=== PATIENT | female | born 1950 | race Caucasian/White ===

== ENCOUNTER 2020-05-10 07:27 | Outpatient (CLI) | payer MEDICARE, OTHER, SELFPAY ==
--- NOTE | 2020-05-10 07:37 | MM_ITS ---
WS: [id number] Bilateral screening digital mammogram, 05/10/2020 Clinical Data: SCREENING Comparison: 04/18/2019, 04/16/2018, 04/15/2017, 03/21/2016, 03/20/2015, 01/18/2014, 10/11/2012, 11/01/2010. Findings: The breast parenchymal pattern shows no glandular tissue No spiculated masses or clustered calcificat ions are seen. There are no secondary signs of carcinoma. MM/[place] [id number] Impression: 1. Negative bilateral mammogram unchanged. 2. Recommend annual screening mammograms. BIRADS: 1-Negative FOLLOW UP: 1 Year Follow-up The CAD body design checker was used.
== END 2020-05-10 07:28 | disposition home or self-care (01) ==
LOC: RADSHAW 07:34
PROVIDERS: Family Provider Electrodiagnostic Medicine; PCP Electrodiagnostic Medicine; Visit Provider Electrodiagnostic Medicine
DX: Z12.31 Encounter for screening mammogram for malignant neoplasm of breast (principal)
CPT/HCPCS: 77067

== ENCOUNTER 2021-05-01 01:33 | Emergency (ER) | payer MEDICARE, SELFPAY ==
[2021-05-01] VITALS (9 sets, daily range): BP systolic 100–155; BP diastolic 46–98; PULSE 73–91; RESP 16–25; TEMP 36.9–37.4; O2SAT 92–96; BMI 25.7
--- NOTE | 2021-05-01 01:56 | CTR_ITS ---
PROCEDURE INFORMATION: Exam: CT Head Without Contrast Exam date and time: 05/01/2021 1:56 AM Age: 71 years old Clinical indication: Altered mental status/memory loss; Confusion or disorientation; Patient HX: Sudden onset of confusion and general weakness. ; Additional info: AMS TECHNIQUE: Imaging protocol: Computed tomography of the head without contrast. Radiation optimization: All CT scans at this facility use at least one of these dose optimization techniques: automated exposure control; mA and/or kV adjustment per patient size (includes targeted exams where dose is matched to clinical indication); or iterative reconstruction. COMPARISON: MRI Neck/Face/Orbit w/wo [id number] 03/30/2017 9:23 AM RADIATION DOSE METRICS: Total DLP (mGy-cm): 741.65 FINDINGS: Brain: No hemorrhage. No edema, mass effect or midline shift. Periventricular and deep white matter hypodensities compatible with chronic microvascular ischemic changes. Chronic appearing basal ganglia lacunar infarcts. Cerebral ventricles: No ventriculomegaly. Paranasal sinuses: Visualized sinuses are unremarkable. No fluid levels. Mastoid air cells: No mastoid effusion. Bones/joints: No acute fracture. Soft tissues: Unremarkable. CT/CT head wo con* [id number] IMPRESSION: No acute intracranial abnormality. Radiation Dose CTDIVOL = (mGy): DLP = 741.65 (mGy-cm)
--- NOTE | 2021-05-01 01:56 | CTR_ITS ---
PROCEDURE INFORMATION: Exam: CT Angiography Head With Contrast, Arteries Exam date and time: 05/01/2021 1:56 AM Age: 71 years old Clinical indication: Cognitive deficit; Type not specified; Patient HX: Sudden onset of confusion and general weakness. ; Additional info: AMS TECHNIQUE: Imaging protocol: Computed tomography angiography of the head with intravenous contrast. 3D rendering (Not supervised by radiologist): MIP and/or 3D reconstructed images were created by the technologist. Radiation optimization: All CT scans at this facility use at least one of these dose optimization techniques: automated exposure control; mA and/or kV adjustment per patient size (includes targeted exams where dose is matched to clinical indication); or iterative reconstruction. Contrast material: OMNI 350; Contrast volume: 95 ml; Contrast route: INTRAVENOUS (IV); COMPARISON: 1. CT head wo con* [id number] 2021-05-01 02:58 2. MRI Neck/Face/Orbit w/wo [id number] 2017-03-30 09:23 RADIATION DOSE METRICS: Total DLP (mGy-cm): 1570.01 FINDINGS: ANTERIOR CIRCULATION: Right internal carotid artery: Unremarkable. Intracranial segment is patent with no significant stenosis. No aneurysm. Right middle cerebral artery: Unremarkable. No occlusion or significant stenosis. No aneurysm. Right anterior cerebral artery: Unremarkable. No occlusion or significant stenosis. No aneurysm. Left internal carotid artery: Unremarkable. Intracranial segment is patent with no significant stenosis. No aneurysm. Left middle cerebral artery: Unremarkable. No occlusion or significant stenosis. No aneurysm. Left anterior cerebral artery: Unremarkable. No occlusion or significant stenosis. No aneurysm. POSTERIOR CIRCULATION: Right vertebral artery: Unremarkable. No occlusion or significant stenosis. No aneurysm. Left vertebral artery: Unremarkable. No occlusion or significant stenosis. No aneurysm. Basilar artery: Unremarkable. No occlusion or significant stenosis. No aneurysm. Right posterior cerebral artery: Unremarkable. No occlusion or significant stenosis. No aneurysm. Left posterior cerebral artery: Unremarkable. No occlusion or significant stenosis. No aneurysm. Brain: No definite mass, mass effect, or midline shift. Cerebral ventricles: No ventriculomegaly. Bones/joints: Unremarkable. No acute fracture. Soft tissues: Unremarkable. IMPRESSION: No large vessel stenosis or occlusion. PROCEDURE INFORMATION: Exam: CT Angiography Neck With Contrast Exam date and time: 05/01/2021 1:56 AM Age: 71 years old Clinical indication: Cognitive deficit; Type not specified; Patient HX: Sudden onset of confusion and general weakness. ; Additional info: AMS TECHNIQUE: Imaging protocol: Computed tomography angiography of the neck with contrast. 3D rendering (Not supervised by radiologist): MIP and/or 3D reconstructed images were created by the technologist. Radiation optimization: All CT scans at this facility use at least one of these dose optimization techniques: automated exposure control; mA and/or kV adjustment per patient size (includes targeted exams where dose is matched to clinical indication); or iterative reconstruction. Contrast material: OMNI 350; Contrast volume: 95 ml; Contrast route: INTRAVENOUS (IV); COMPARISON: 1. CT head wo con* [id number] 2021-05-01 02:58 2. MRI Neck/Face/Orbit w/wo [id number] 2017-03-30 09:23 RADIATION DOSE METRICS: Total DLP (mGy-cm): 1570.01 FINDINGS: Right common carotid artery: No stenosis. No dissection or occlusion. Right internal carotid artery: No stenosis of the extracranial segment. No dissection or occlusion. Right external carotid artery: No occlusion or stenosis of the origin. Left common carotid artery: No stenosis. No dissection or occlusion. Left internal carotid artery: No stenosis of the extracranial segment. No dissection or occlusion. Left external carotid artery: No occlusion or stenosis of the origin. Right vertebral artery: No stenosis. No dissection or occlusion. Left vertebral artery: No stenosis. No dissection or occlusion. Left subclavian artery: Mild left subclavian artery origin calcification. Soft tissues: Normal. No significant soft tissue swelling. Bones/joints: No acute fracture. Esophagus: Patulous esophagus. CT/CT angio headneck* [id number] IMPRESSION: No stenosis or occlusion. REFERENCES: NASCET CRITERIA. The degree of internal carotid artery stenosis is based on NASCET criteria. Normal is no stenosis. Mild is less than 50% stenosis. Moderate is 50-69% stenosis. Severe is 70% to 99% stenosis. Total occlusion is no detectable patent lumen. Radiation Dose CTDIVOL = (mGy): DLP = 1570.01~1570.01 (mGy-cm)
--- NOTE | 2021-05-01 01:56 | XRR_ITS ---
PROCEDURE INFORMATION: Exam: XR Chest Exam date and time: 05/01/2021 1:56 AM Age: 71 years old Clinical indication: Other: Ams/weakness. ; Patient HX: AMS. Patient confused with generalized weakness. TECHNIQUE: Imaging protocol: XR of the chest. Views: 1 view. COMPARISON: CR Shoulder 2+ views RIGHT* [id number] 05/20/2018 11:56 AM FINDINGS: Lungs: No consolidation. Pleural spaces: Unremarkable. No pleural effusion. No pneumothorax. Heart/Mediastinum: No cardiomegaly. Bones/joints: No acute fracture. XR/XR chest 1V portable [id number] IMPRESSION: No acute findings. Radiation Dose CTDIVOL = (mGy): DLP = (mGy-cm)
--- NOTE | 2021-05-01 02:02 | W.ED.NEUROSD ---
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 He states he has not talked or ever since he got home roughly 1 AM and states that she was still awake was quite confused. She is did not remember where she is at when spoke to her she had asked him questions like if her mother still lived in [place] and he states that her mother's been for 9 years. Patient here is able to tell me the year but is quite confused she cannot member who the president was did not remember her mother's she had an episode of vomiting she denies any headache or chest pain. Associated symptoms: Deny chest pain, headache(s), nausea or vomiting Review of Systems Const: Denies: fever(s), chills, body aches or change in appetite Eyes: Denies: blurry vision or eye discomfort ENMT: Denies: throat pain or dental pain Card: Denies: chest pain Resp: Denies: dyspnea GI: Denies: abdominal pain, nausea, vomiting or diarrhea : Denies: dysuria Musc: Denies: neck pain or back pain Skin/Breast: Denies: rash Neuro: Denies: headache(s) Psych: Denies: depression Joe/Lymph: Denies: easy bruising All/Imm: Denies: urticaria Physical Exam Const: COMMON NORMALS: no acute distress, patient oriented x3 and healthy appearing ORIENTATION/CONSCIOUSNESS: Yes confused HENMT: COMMON NORMALS: normocephalic and atraumatic HEAD & SCALP: normocephalic and atraumatic Eye: COMMON NORMALS: Equal, round and reactive pupils present and EOMs intact bilaterally PUPIL: Yes Equal, round and reactive pupils present Neck/C-Spine: COMMON NORMALS: full ROM and supple Chest: COMMONS NORMALS: normal inspection of the chest and normal palpation of entire chest wall Resp: COMMON NORMALS: normal respiratory effort, No retractions, No use of accessory muscles and clear to auscultation bilaterally AUSCULTATION: clear to auscultation bilaterally Cardio: COMMON NORMALS: regular rate, regular rhythm and No murmurs present (Cardio) RATE: regular rate RHYTHM: regular rhythm GI: COMMON NORMALS: Normal to inspection, nondistended, normoactive bowel sounds present, Soft to palpation, non-tender and no masses PALPATION: Yes Soft to palpation Extremity: COMMON NORMALS: normal to inspection and full ROM Neuro: COMMON NORMALS: patient oriented x3, moves all extremities and no focal motor deficits Psych: COMMON NORMALS: mental status grossly normal, Normal thought process present and cooperative THOUGHT PROCESS: Normal thought process present Skin: COMMON NORMALS: no rashes or lesions noted and no wounds GENERAL SKIN EXAM: no rashes or lesions noted Course Vital Signs: Vital signs: Vital Signs Temperature 98.5 F 05/01/21 01:42 Pulse Rate 91 05/01/21 01:42 Respiratory Rate 16 05/01/21 01:42 Blood Pressure 155/98 05/01/21 01:42 Pulse Oximetry 96 05/01/21 01:42 MDM - Neuro Symptoms/Deficit MDM Narrative: Medical decision making narrative: Patient presents here with acute confusion last time spoke to her was at 8 PM patient is quite confused here patient has no signs of any infection CT and CTA here are normal. Spoke to the hospitalist who is seen patient will admit at this time. Lab Data: Labs: Lab Results 05/01/21 05/01/21 05/01/21 02:00 02:00 02:00 WBC 10.4 10^3/uL H 10 ^3/uL (4.0-10.0) RBC 4.16 10^6/uL 10^6 /uL (4.1-5.3) Hgb 14.1 g/dL g/dL (11.5-15.3) Hct 41.3 % % (37.0-47.0) MCV 99.3 fl H fl (81-99) MCH 33.9 pg pg (28.0-34.0) MCHC 34.1 g/dL g/dL (30.0-36.0) RDW 12.3 % % (12.1-15.1) Plt Count 286 10^3/cmm 10^3 /cmm (130-400) MPV 10.8 fL H fL (7.4-10.4) Neut % (Auto) 71.9 % % Lymph % (Auto) 18.6 % % Williams % (Auto) 7.6 % % Eos % (Auto) 1.1 % % Baso % (Auto) 0.6 % % Neut # (Auto) 7.49 10^3/uL 10^3 /uL (1.8-7.7) Lymph # (Auto) 1.9 10^3/uL 10^3/ uL (0.8-4.8) Williams # (Auto) 0.8 10^3/uL 10^3/ uL (0.2-0.9) Eos # (Auto) 0.1 10^3/uL 10^3/ uL (0.0-0.8) Baso # (Auto) 0.1 10^3/uL 10^3/ uL (0.0-0.1) Nucleated RBC % (a uto) 0 % % Nucleated RBCs # 0.0 /100WBC /100W BC PT 12.00 SECONDS L S ECONDS (12.1-14.9) INR 0.86 (0.8-1.2) Sodium 140 mmol/L mmol/L (136-145) Potassium 3.9 mmol/L mmol/L (3.5-5.1) Chloride 104 mmol/L mmol/L (98-107) Carbon Dioxide 25 mmol/L mmol/L (22-29) Anion Gap 14.9 (5-19) BUN 19 mg/dL mg/dL (8-23) Creatinine 0.7 mg/dL mg/dL (0.5-0.9) GFR Calculation 83.0 mL/min L mL/ min (90-130) Glucose 124 mg/dL H mg/dL (65-115) Calculated Osmolal ity 294 mOsm/kg mOsm/ kg (285-295) Calcium 8.7 mg/dL mg/dL (8.5-10.5) Total Bilirubin 0.4 mg/dL mg/dL (0.15-1.2) AST 40 U/L H U/L (0-32) ALT 63 U/L H U/L (0-33) Alkaline Phosphata se 86 IU/L IU/L (35-105) Total Protein 7.1 g/dL g/dL (6.6-8.7) Albumin 4.3 g/dL g/dL (3.5-5.2) Globulin 2.8 g/dL g/dL (1.3-4.6) Urine Color Urine Appearance Urine pH Ur Specific Gravit y Urine Protein Urine Glucose (UA) Urine Ketones Urine Blood Urine Nitrate Urine Bilirubin Urine Urobilinogen Ur Leukocyte Lucy ase 05/01/21 02:00 WBC RBC Hgb Hct MCV MCH MCHC RDW Plt Count MPV Neut % (Auto) Lymph % (Auto) Williams % (Auto) Eos % (Auto) Baso % (Auto) Neut # (Auto) Lymph # (Auto) Williams # (Auto) Eos # (Auto) Baso # (Auto) Nucleated RBC % (a uto) Nucleated RBCs # PT INR Sodium Potassium Chloride Carbon Dioxide Anion Gap BUN Creatinine GFR Calculation Glucose Calculated Osmolal ity Calcium Total Bilirubin AST ALT Alkaline Phosphata se Total Protein Albumin Globulin Urine Color Yellow (Yellow) Urine Appearance Clear (CLEAR) Urine pH 6 (5-7) Ur Specific Gravit y 1.020 (1.005-1.030) Urine Protein Neg (Negative) Urine Glucose (UA) Norm (Normal) Urine Ketones Negative (Negative) Urine Blood Neg (Negative) Urine Nitrate Negative (Negative) Urine Bilirubin Neg (Negative) Urine Urobilinogen Neg mg/dL mg/dL (Negative) Ur Leukocyte Lucy ase Negative (Negative) Imaging Data^: CT Head: Attestation: I personally reviewed and interpreted this imaging study as follows: Radiologist's impression: [address] [address] [address] Scan Report Signed Patient: Brenda Thomas Unit #: [id number] : 1950 Age/Sex: 71 / F ADM Date: 05/01/21 Loc: ER Room/Bed: Attending Dr: Ordering Provider/Ordering MD: Ronn Magallon MD Date of Service: 05/01/21 Procedure(s): CT head wo con* [id number] Accession Number(s): [id number] Report Number: [id number] PROCEDURE INFORMATION: Exam: CT Head Without Contrast Exam date and time: 05/01/2021 1:56 AM Age: 71 years old Clinical indication: Altered mental status/memory loss; Confusion or disorientation; Patient HX: Sudden onset of confusion and general weakness. ; Additional info: AMS TECHNIQUE: Imaging protocol: Computed tomography of the head without contrast. Radiation optimization: All CT scans at this facility use at least one of these dose optimization techniques: automated exposure control; mA and/or kV adjustment per patient size (includes targeted exams where dose is matched to clinical indication); or iterative reconstruction. COMPARISON: MRI Neck/Face/Orbit w/wo [id number] 03/30/2017 9:23 AM RADIATION DOSE METRICS: Total DLP (mGy-cm): 741.65 FINDINGS: Brain: No hemorrhage. No edema, mass effect or midline shift. Periventricular and deep white matter hypodensities compatible with chronic microvascular ischemic changes. Chronic appearing basal ganglia lacunar infarcts. Cerebral ventricles: No ventriculomegaly. Paranasal sinuses: Visualized sinuses are unremarkable. No fluid levels. Mastoid air cells: No mastoid effusion. Bones/joints: No acute fracture. Soft tissues: Unremarkable. CT/CT head wo con* [id number] IMPRESSION: No acute intracranial abnormality. Radiation Dose CTDIVOL = (mGy): DLP = 741.65 (mGy-cm) Dictated By: Rafaela Atwood MD Signed By: Rafaela Atwood MD Signed Date/Time: 05/01/21411 DD/ 5 CXR: Attestation: I personally reviewed and interpreted this imaging study as follows: Radiologist's impression: [address] [address] XRay Report Signed Patient: Brenda Thomas Unit #: [id number] : 1950 Age/Sex: 71 / F ADM Date: 05/01/21 Loc: ER Room/Bed: Attending Dr: Ordering Provider/Ordering MD: Ronn Magallon MD Date of Service: 05/01/21 Procedure(s): XR chest 1V portable [id number] Accession Number(s): [id number] Report Number: [id number] PROCEDURE INFORMATION: Exam: XR Chest Exam date and time: 05/01/2021 1:56 AM Age: 71 years old Clinical indication: Other: Ams/weakness. ; Patient HX: AMS. Patient confused with generalized weakness. TECHNIQUE: Imaging protocol: XR of the chest. Views: 1 view. COMPARISON: CR Shoulder 2+ views RIGHT* [id number] 05/20/2018 11:56 AM FINDINGS: Lungs: No consolidation. Pleural spaces: Unremarkable. No pleural effusion. No pneumothorax. Heart/Mediastinum: No cardiomegaly. Bones/joints: No acute fracture. XR/XR chest 1V portable [id number] IMPRESSION: No acute findings. Radiation Dose CTDIVOL = (mGy): DLP = (mGy-cm) Dictated By: Rafaela Atwood MD Signed By: Rafaela Atwood MD Signed Date/Time: 05/01/21411 DD/ [address]: Attestation: I personally reviewed and interpreted this imaging study as follows: Radiologist's impression: [address] [address] [address] Scan Report Signed Patient: Brenda Thomas Unit #: [id number] : 1950 Age/Sex: 71 / F ADM Date: 05/01/21 Loc: ER Room/Bed: Attending Dr: Ordering Provider/Ordering MD: Ronn Magallon MD Date of Service: 05/01/21 Procedure(s): CT angio headneck* [id number] Accession Number(s): [id number] Report Number: [id number] PROCEDURE INFORMATION: Exam: CT Angiography Head With Contrast, Arteries Exam date and time: 05/01/2021 1:56 AM Age: 71 years old Clinical indication: Cognitive deficit; Type not specified; Patient HX: Sudden onset of confusion and general weakness. ; Additional info: AMS TECHNIQUE: Imaging protocol: Computed tomography angiography of the head with intravenous contrast. 3D rendering (Not supervised by radiologist): MIP and/or 3D reconstructed images were created by the technologist. Radiation optimization: All CT scans at this facility use at least one of these dose optimization techniques: automated exposure control; mA and/or kV adjustment per patient size (includes targeted exams where dose is matched to clinical indication); or iterative reconstruction. Contrast material: OMNI 350; Contrast volume: 95 ml; Contrast route: INTRAVENOUS (IV); COMPARISON: 1. CT head wo con* [id number] 2021-05-01 02:58 2. MRI Neck/Face/Orbit w/wo [id number] 2017-03-30 09:23 RADIATION DOSE METRICS: Total DLP (mGy-cm): 1570.01 FINDINGS: ANTERIOR CIRCULATION: Right internal carotid artery: Unremarkable. Intracranial segment is patent with no significant stenosis. No aneurysm. Right middle cerebral artery: Unremarkable. No occlusion or significant stenosis. No aneurysm. Right anterior cerebral artery: Unremarkable. No occlusion or significant stenosis. No aneurysm. Left internal carotid artery: Unremarkable. Intracranial segment is patent with no significant stenosis. No aneurysm. Left middle cerebral artery: Unremarkable. No occlusion or significant stenosis. No aneurysm. Left anterior cerebral artery: Unremarkable. No occlusion or significant stenosis. No aneurysm. POSTERIOR CIRCULATION: Right vertebral artery: Unremarkable. No occlusion or significant stenosis. No aneurysm. Left vertebral artery: Unremarkable. No occlusion or significant stenosis. No aneurysm. Basilar artery: Unremarkable. No occlusion or significant stenosis. No aneurysm. Right posterior cerebral artery: Unremarkable. No occlusion or significant stenosis. No aneurysm. Left posterior cerebral artery: Unremarkable. No occlusion or significant stenosis. No aneurysm. Brain: No definite mass, mass effect, or midline shift. Cerebral ventricles: No ventriculomegaly. Bones/joints: Unremarkable. No acute fracture. Soft tissues: Unremarkable. IMPRESSION: No large vessel stenosis or occlusion. PROCEDURE INFORMATION: Exam: CT Angiography Neck With Contrast Exam date and time: 05/01/2021 1:56 AM Age: 71 years old Clinical indication: Cognitive deficit; Type not specified; Patient HX: Sudden onset of confusion and general weakness. ; Additional info: AMS TECHNIQUE: Imaging protocol: Computed tomography angiography of the neck with contrast. 3D rendering (Not supervised by radiologist): MIP and/or 3D reconstructed images were created by the technologist. Radiation optimization: All CT scans at this facility use at least one of these dose optimization techniques: automated exposure control; mA and/or kV adjustment per patient size (includes targeted exams where dose is matched to clinical indication); or iterative reconstruction. Contrast material: OMNI 350; Contrast volume: 95 ml; Contrast route: INTRAVENOUS (IV); COMPARISON: 1. CT head wo con* [id number] 2021-05-01 02:58 2. MRI Neck/Face/Orbit w/wo [id number] 2017-03-30 09:23 RADIATION DOSE METRICS: Total DLP (mGy-cm): 1570.01 FINDINGS: Right common carotid artery: No stenosis. No dissection or occlusion. Right internal carotid artery: No stenosis of the extracranial segment. No dissection or occlusion. Right external carotid artery: No occlusion or stenosis of the origin. Left common carotid artery: No stenosis. No dissection or occlusion. Left internal carotid artery: No stenosis of the extracranial segment. No dissection or occlusion. Left external carotid artery: No occlusion or stenosis of the origin. Right vertebral artery: No stenosis. No dissection or occlusion. Left vertebral artery: No stenosis. No dissection or occlusion. Left subclavian artery: Mild left subclavian artery origin calcification. Soft tissues: Normal. No significant soft tissue swelling. Bones/joints: No acute fracture. Esophagus: Patulous esophagus. CT/CT angio headneck* [id number] IMPRESSION: No stenosis or occlusion. REFERENCES: NASCET CRITERIA. The degree of internal carotid artery stenosis is based on NASCET criteria. Normal is no stenosis. Mild is less than 50% stenosis. Moderate is 50-69% stenosis. Severe is 70% to 99% stenosis. Total occlusion is no detectable patent lumen. 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
[2021-05-01 02:27] LABS: Basophils # 0.1 10^3/uL (0.0-0.1); Basophils % 0.6 %; Eosinophils # 0.1 10^3/uL (0.0-0.8); Eosinophils % 1.1 %; Hematocrit 41.3 % (37.0-47.0); Hemoglobin 14.1 g/dL (11.5-15.3); Lymphocytes # 1.9 10^3/uL (0.8-4.8); Lymphocytes % 18.6 %; Mean Corpuscular HGB Conc 34.1 g/dL (30.0-36.0); Mean Corpuscular Hemoglobin 33.9 pg (28.0-34.0); Mean Corpuscular Volume 99.3 fl (81-99); Mean Platelet Volume 10.8 fL (7.4-10.4); Monocytes # 0.8 10^3/uL (0.2-0.9); Monocytes % 7.6 %; Neutrophils # 7.49 10^3/uL (1.8-7.7); Neutrophils % 71.9 %; Nucleated Red Blood Cells % 0 %; Platelet Count 286 10^3/cmm (130-400); Red Blood Count 4.16 10^6/uL (4.1-5.3); Red Cell Distribution Width 12.3 % (12.1-15.1); White Blood Count 10.4 10^3/uL (4.0-10.0)
[2021-05-01 02:31] LABS: Add Urine Microscopic? NO; Charge for UA Resulting for Rev
[2021-05-01 02:41] LABS: INR 0.86 (0.8-1.2)
[2021-05-01 02:42] LABS: Bilirubin Urine Neg (Negative); Blood Urine Neg (Negative); Glucose Urine UA Norm (Normal); Ketones Urine Negative (Negative); Leukocyte Esterase Urine Negative (Negative); Nitrate Urine Negative (Negative); Protein Urine Neg (Negative); Urine Appearance Clear (CLEAR); Urine Color Yellow (Yellow); Urobilinogen Urine Neg (Negative); pH Urine 6 (5-7)
[2021-05-01 02:44] LABS: Alanine Aminotransferase 63 U/L (0-33); Albumin Level 4.3 g/dL (3.5-5.2); Alkaline Phosphatase 86 IU/L (35-105); Anion Gap 14.9 (5-19); Aspartate Amino Transferase 40 U/L (0-32); Blood Urea Nitrogen 19 mg/dL (8-23); Calcium 8.7 mg/dL (8.5-10.5); Carbon Dioxide 25 mmol/L (22-29); Chloride 104 mmol/L (98-107); Creatinine Clr Calc Pharmacy 62.9019; Globulin 2.8 g/dL (1.3-4.6); Glucose 124 mg/dL (65-115); Osmolality Calculated 294 mOsm/kg (285-295); Potassium 3.9 mmol/L (3.5-5.1); Sodium 140 mmol/L (136-145); Total Bilirubin 0.4 mg/dL (0.15-1.2); Total Protein 7.1 g/dL (6.6-8.7)
[2021-05-01] MEDS: iohexol 350 mg/mL 100 mL Btl IV (02:59)
--- NOTE | 2021-05-01 03:56 | PM.HP ---
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 Patient stated he had spoken with her earlier in the day and she appeared to have been at her baseline. Did not have any complaints. Around 8:00 p.m. is when he returned home and noted the change. During that time patient was complaining of nausea after which she had multiple episodes of non-bloody emesis. No reported fever or chills. No chest pain or shortness of breath. Upon arrival to emergency room her laboratory workup showed a WBC of 10.4, hemoglobin of 14.1, hematocrit 41.3 and a platelet count of 286. Sodium 140, potassium 3.9, chloride 104, bicarb 25, BUN 18 and creatinine of 0.7. Glucose 124. AST of 40, ALT of 63 and alkaline phosphatase of 86. UA negative. Vital signs showed a BP of 155/98, HR of 91, RR 16 with 96% oxygen on RA. Admitted for observation Review of Systems General: Reports: ROS unobtainable due to mental status Medications/Allergies Allergies Allergy/AdvReac Type Severity Reaction Status Date / Time No Known Allergies Allergy Verified 05/01/21 01:42 PFSH Acute PFSH: Medical History (Updated 05/01/21 @ 06:16 by Cande Giraldo MD) Hypertension No pertinent family history Surgical History (Updated 05/01/21 @ 06:16 by Cande Giraldo MD) No pertinent past surgical history Social History (Updated 05/01/21 @ 06:16 by Cande Giraldo MD) Smoking and tobacco status: unknown if ever smoked Alcohol intake: unknown Substance/Drug Use: unknown Vitals/I&O/Wt Last Vital Signs Temp 98.5 F 05/01/21 01:42 Pulse 91 05/01/21 01:42 Resp 16 05/01/21 01:42 BP 155/98 05/01/21 01:42 Pulse Ox 96 05/01/21 01:42 Weight last 48 hrs Weight 68.039 kg Physical Exam Narrative: EXAM NARRATIVE: General: Alert, pleasantly confused HEENT; Grossly normal CVS; RRR Chest ; CTABL Abd; Soft nt,nd Ext noedema Neuro: CN 2-12 intact, no motor or sensory deficits. Data : 05/01/21 02:00 05/01/21 02:00 A&P Assessment and plan (1) Altered mental status: Status: Acute Qualifiers: Altered mental status type: unspecified Qualified Code(s): R41.82 - Altered mental status, unspecified (2) Hypertension: Status: Acute Additional A&P Information Altered Mental status - Etiology unclear - No new meds - Afebrile - No clear sign of infection - CT head/CTA, - negative - Check TSH, procal - NS at 75cc/hr - NIH 0 on arrival - Consider neurology consult - Check UDS DVT ppx - Heparin 5000 units q8hr Attestations Medical Necessity Statement*: anticipate less than two midnight in hospital Time Spent in Patient Care: Greater than 35 minutes (>than 50% of time spent in counselling and/or direct pt care on unit). 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
--- NOTE | 2021-05-01 04:16 | ECG_ITS ---
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 Measurements Intervals [place] Rate: 74 P: -18 TN: 146 QRS: -23 QRSD: 97 T: -29 QT: 392 QTc: 437 Interpretive Statements SINUS RHYTHM INDETERMINATE AXIS INFERIOR MYOCARDIAL INFARCTION , OF INDETERMINATE AGE [40+ ms Q WAVE AND/OR ST/T ABNORMALITY IN II/aVF] No previous ECG available for comparison Electronically Signed On 05-01-2021 17:36:38 HOME HEALTH TRAVEL PT by Norberto Ford M.D. [email or web address] mary[facility] [place] [facility].[employer]sm[employer]/[email or web address]/OM/[id number]/[id number]
[2021-05-01 06:44] LABS: Procalcitonin 0.04 ng/mL (0-0.5)
[2021-05-01] MEDS: acetaminophen 325 mg Tablet 650 MG PO (07:32)
[2021-05-01] MEDS: sodium chloride 0.9% 1,000 ML 75 ML IV (08:23)
[2021-05-01] MEDS: heparin 5,000 unit/mL INJ 1 mL 5000 UNIT SUBCUT (08:24)
[2021-05-01] MEDS: pantoprazole DR 40 mg Tablet PO (09:25)
[2021-05-01] MEDS: ibuprofen 200 mg Tablet PO (11:31)
[2021-05-01 11:32] LABS: Amphetamines Screen Urine Negative (Negative); Barbiturates Screen Urine Negative (Negative); Benzodiazepines Screen Urine Negative (Negative); Cocaine Screen Urine Negative (Negative); Opiate Screen Urine Negative (Negative); PCP Screen Urine Negative (Negative); THC Screen Urine Negative (Negative)
--- NOTE | 2021-05-01 11:34 | PM.PN ---
Vitals/I&O/Wt Last Vital Signs Temp 98.4 F 05/01/21 10:33 Pulse 73 05/01/21 11:29 Resp 19 H 05/01/21 11:29 BP 104/49 05/01/21 11:29 Pulse Ox 94 05/01/21 11:29 Weight last 48 hrs Weight 68.039 kg Physical Exam Const: COMMON NORMALS: patient oriented x3 HENMT: COMMON NORMALS: normocephalic and atraumatic HEAD & SCALP: normocephalic and atraumatic Resp: COMMON NORMALS: clear to auscultation bilaterally AUSCULTATION: clear to auscultation bilaterally Cardio: COMMON NORMALS: regular rate, regular rhythm, S1 normal heart sound present, S2 normal heart sound present, No gallops present (Cardio), No murmurs present (Cardio), No rub (Cardio) and Peripheral pulses 2+ throughout RATE: regular rate RHYTHM: regular rhythm HEART SOUNDS: S1 normal heart sound present and S2 normal heart sound present PERIPHERAL PULSES: Peripheral pulses 2+ throughout GI: COMMON NORMALS: Normal to inspection, nondistended, normoactive bowel sounds present, Soft to palpation, non-tender, No hepatosplenomegaly present and no masses AUSCULTATION: Yes normoactive bowel sounds PALPATION: Yes Soft to palpation and Yes No hepatosplenomegaly present RECTAL EXAM: deferred Extremity: COMMON NORMALS: no clubbing, cyanosis or edema and no pedal edema Neuro: COMMON NORMALS: patient oriented x3 Data : 05/01/21 02:00 05/01/21 02:00 A&P Assessment and plan (1) Altered mental status: Status: Acute Qualifiers: Altered mental status type: unspecified Qualified Code(s): R41.82 - Altered mental status, unspecified (2) Hypertension: Status: Acute (3) Nausea & vomiting: Status: Acute (4) Headache: Status: Acute Additional A&P Information Altered Mental status - Etiology unclear - No new meds - Afebrile - No clear sign of infection - CT head/CTA, - negative - Check TSH, procal - NS at 75cc/hr - NIH 0 on arrival - Consider neurology consult - Check UDS DVT ppx - Heparin 5000 units q8hr Coding Level of Care Code 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
--- NOTE | 2021-05-01 12:32 | PM.DCS ---
Discharge Providers Date of Admission: 05/01/21 05:36 Date of Discharge: May 01, 2021 Attending Provider at Admission: Cande Giraldo Attending Provider at Discharge: Tristian Kebede MD Primary Care Provider: Troy Berrios DO Diagnoses at Discharge Discharge Diagnosis (1) Altered mental status: Status: Resolved Qualifiers: Altered mental status type: unspecified Qualified Code(s): R41.82 - Altered mental status, unspecified (2) Hypertension: Status: Acute (3) Nausea & vomiting: Status: Resolved (4) Headache: Status: Resolved Reason for Visit Reason for Visit: Disorientated and Vomiting Hospital Course Hospital Course 71-year-old female with past medical history of depression, dyslipidemia, was brought in with chief complaint of acute onset of confusion as well as nausea vomiting ( multiple episodes of non-bloody emesis),No reported fever or chills. No chest pain or shortness of breath. Upon arrival to emergency room her laboratory workup showed a WBC of 10.4, hemoglobin of 14.1, hematocrit 41.3 and a platelet count of 286. Sodium 140, potassium 3.9, chloride 104, bicarb 25, BUN 18 and creatinine of 0.7. Glucose 124. AST of 40, ALT of 63 and alkaline phosphatase of 86. UA negative. Vital signs showed a BP of 155/98, HR of 91, RR 16 with 96% oxygen on RA. She was admitted for the management of altered mental status nausea, vomiting. Pertinent imaging studies: CT head without contrast : No acute intracranial pathology, CTA head and neck, was negative, TSH was normal , procalcitonin was normal, urinalysis was clear, urine tox was negative. Chest x-ray was clean. When I saw the patient in the morning she was not complaining of any nausea vomiting, she was alert awake* 3. She was complaining of mild headache and wanted ibuprofen for that which works well for her, denies any weakness, she was tolerating diet well. Likely cause of acute encephalopathy is unclear, possibility, viral GI infection cannot be completely ruled. Patient was hemodynamically stable afebrile, saturating well on room air, it was decided that she can safely be discharged to home to follow-up with her primary care physician as an outpatient. Patient responded well to above medical management and was discharged in stable condition. Physical Exam Const: COMMON NORMALS: patient oriented x3 HENMT: COMMON NORMALS: normocephalic and atraumatic HEAD & SCALP: normocephalic and atraumatic Resp: COMMON NORMALS: clear to auscultation bilaterally AUSCULTATION: clear to auscultation bilaterally Cardio: COMMON NORMALS: regular rate, regular rhythm, S1 normal heart sound present, S2 normal heart sound present, No gallops present (Cardio), No murmurs present (Cardio), No rub (Cardio) and Peripheral pulses 2+ throughout RATE: regular rate RHYTHM: regular rhythm HEART SOUNDS: S1 normal heart sound present and S2 normal heart sound present PERIPHERAL PULSES: Peripheral pulses 2+ throughout GI: COMMON NORMALS: Normal to inspection, nondistended, normoactive bowel sounds present, Soft to palpation, non-tender, No hepatosplenomegaly present and no masses AUSCULTATION: Yes normoactive bowel sounds PALPATION: Yes Soft to palpation and Yes No hepatosplenomegaly present RECTAL EXAM: deferred Extremity: COMMON NORMALS: no clubbing, cyanosis or edema and no pedal edema Neuro: COMMON NORMALS: patient oriented x3 Discharge Data Data Completed and Pending: Completed Studies During Hospitalization Category Date Time Status CT angio headneck * [id number] Urge nt Cat Scan 05/01/21 01:[address] head wo con* 7 0450 Urgent Cat Scan 05/01/21 01:56 Completed XR chest 1V [email or web address] ble [id number] Urgent Exams 05/01/21 01:56 Completed Pending at discharge Category Date Time Status Basic Metabolic P mine AM LABS Lab 05/02/21 04:00 Ordered Basic Metabolic P mine AM LABS Lab 05/03/21 04:00 Ordered Complete Blood Co unt w/Auto AM LABS Lab 05/02/21 04:00 Ordered Complete Blood Co unt w/Auto AM LABS Lab 05/03/21 04:00 Ordered Urine Culture Rou indio Lab 05/01/21 02:00 Received Labs from last 24 hours 05/01/21 05/01/21 05/01/21 02:00 02:00 02:00 WBC RBC Hgb Hct MCV MCH MCHC RDW Plt Count MPV Neut % (Auto) Lymph % (Auto) [place] % (Auto) Eos % (Auto) Baso % (Auto) Neut # (Auto) Lymph # (Auto) [place] # (Auto) Eos # (Auto) Baso # (Auto) Nucleated RBC % (a uto) Nucleated RBCs # PT INR Sodium Potassium Chloride Carbon Dioxide Anion Gap BUN Creatinine GFR Calculation Glucose Calculated Osmolal ity Calcium Total Bilirubin AST ALT Alkaline Phosphata se Total Protein Albumin Globulin Procalcitonin 0.04 TSH 3.50 Urine Color Urine Appearance Urine pH Ur Specific Gravit y Urine Protein Urine Glucose (UA) Urine Ketones Urine Blood Urine Nitrate Urine Bilirubin Urine Urobilinogen Ur Leukocyte Lucy ase Urine Opiates Scre en Negative Ur Barbiturates Sc reen Negative Ur Phencyclidine S crn Negative Ur Amphetamines Sc reen Negative U Benzodiazepines Scrn Negative Urine Cocaine Scre en Negative U Marijuana (THC) Screen Negative 05/01/21 05/01/21 05/01/21 02:00 02:00 02:00 WBC RBC Hgb Hct MCV MCH MCHC RDW Plt Count MPV Neut % (Auto) Lymph % (Auto) [place] % (Auto) Eos % (Auto) Baso % (Auto) Neut # (Auto) Lymph # (Auto) [place] # (Auto) Eos # (Auto) Baso # (Auto) Nucleated RBC % (a uto) Nucleated RBCs # PT 12.00 L INR 0.86 Sodium 140 Potassium 3.9 Chloride 104 Carbon Dioxide 25 Anion Gap 14.9 BUN 19 Creatinine 0.7 GFR Calculation 83.0 L Glucose 124 H Calculated Osmolal ity 294 Calcium 8.7 Total Bilirubin 0.4 AST 40 H ALT 63 H Alkaline Phosphata se 86 Total Protein 7.1 Albumin 4.3 Globulin 2.8 Procalcitonin TSH Urine Color Yellow Urine Appearance Clear Urine pH 6 Ur Specific Gravit y 1.020 Urine Protein Neg Urine Glucose (UA) Norm Urine Ketones Negative Urine Blood Neg Urine Nitrate Negative Urine Bilirubin Neg Urine Urobilinogen Neg Ur Leukocyte Lucy ase Negative Urine Opiates Scre en Ur Barbiturates Sc reen Ur Phencyclidine S crn Ur Amphetamines Sc reen U Benzodiazepines Scrn Urine Cocaine Scre en U Marijuana (THC) Screen 05/01/21 02:00 WBC 10.4 H RBC 4.16 Hgb 14.1 Hct 41.3 MCV 99.3 H MCH 33.9 MCHC 34.1 RDW 12.3 Plt Count 286 MPV 10.8 H Neut % (Auto) 71.9 Lymph % (Auto) 18.6 [place] % (Auto) 7.6 Eos % (Auto) 1.1 Baso % (Auto) 0.6 Neut # (Auto) 7.49 Lymph # (Auto) 1.9 [place] # (Auto) 0.8 Eos # (Auto) 0.1 Baso # (Auto) 0.1 Nucleated RBC % (a uto) 0 Nucleated RBCs # 0.0 PT INR Sodium Potassium Chloride Carbon Dioxide Anion Gap BUN Creatinine GFR Calculation Glucose Calculated Osmolal ity Calcium Total Bilirubin AST ALT Alkaline Phosphata se Total Protein Albumin Globulin Procalcitonin TSH Urine Color Urine Appearance Urine pH Ur Specific Gravit y Urine Protein Urine Glucose (UA) Urine Ketones Urine Blood Urine Nitrate Urine Bilirubin Urine Urobilinogen Ur Leukocyte Lucy ase Urine Opiates Scre en Ur Barbiturates Sc reen Ur Phencyclidine S crn Ur Amphetamines Sc reen U Benzodiazepines Scrn Urine Cocaine Scre en U Marijuana (THC) Screen Vitals: Last Vital Signs Temp 98.4 F 05/01/21 10:33 Pulse 79 05/01/21 12:08 Resp 25 H 05/01/21 12:08 BP 128/69 05/01/21 12:08 Pulse Ox 92 05/01/21 12:08 Discharge Plan Discharge Patient Disposition: Home Condition: Stable Prescriptions: New ibuprofen 200 mg Tablet 200 mg PO Q6H PRN (Reason: Moderate Pain) 3 Days Qty: 10 RF: 0 Continued atorvastatin 80 mg tablet 80 mg PO DAILY RF: 0 omeprazole 40 mg capsule,delayed release(DR/EC) 40 mg PO DAILY RF: 0 sertraline 25 mg tablet 25 mg PO DAILY RF: 0 oxybutynin chloride 5 mg tablet 5 mg PO DAILY RF: 0 Discharge Orders: Discharge Order (Routine); Ordered 05/01/21 Ordered By: Tristian Kebede Referrals: Troy Berrios DO [Primary Care Provider] - 2 weeks Discharge Diet: Regular Discharge Activity: Resume usual activity Patient Instructions: Opioid Safety Discharge Attestations Time Spent in Discharge Care*: less than 30 min Specific Discharge Activities: educating patient, educating and/or supporting family/caregiver, discussing with case management assistant/social workers/dc planners, documenting/other paperwork and evaluating patient/reviewing data Status at Discharge: Cognitive status at discharge: cognitively intact, Behavioral status at discharge: cooperative, Functional status at discharge: independent ambulation Overall status at discharge: patient is back to baseline Quality Metrics Clinical Quality Measures During this hospital stay, did patient experience: None Coding Level of Care Code Acute Chg FW DC note Exam Detailed Diagnoses Altered mental status R41.82 Altered mental status type: unspecified Hypertension I10 Nausea & vomiting R11.2 Headache R51.9
--- NOTE | 2021-05-01 13:36 | PC.NURSE ---
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 I told the patient it would be just a minute and they stated i have ibuprofen at home, i dont need it .
--- NOTE | 2021-05-01 15:31 | PC.OT ---
OT EVALUATION NOT COMPLETED AT THIS TIME DUE TO PATIENT BEING DISCHARGED FROM ER.
== END 2021-05-01 13:40 | disposition admitted as inpatient to this hospital (09) ==
LOC: ER 04:46 → ER IP 05:40
PROVIDERS: Emergency Provider Emergency Medicine; PCP Electrodiagnostic Medicine; Visit Provider Hospitalist
DX: R41.82 Altered mental status, unspecified (principal); R11.10 Vomiting, unspecified; I10 Essential (primary) hypertension
CPT/HCPCS: 70450; 70496; 70498; 71045; 80053; 80306; 81003; 84145; 84443; 85025; 85610; 87077; 87086; 87186; 93005; 96372; J1644; J7030; Q9967

== ENCOUNTER 2021-07-16 07:09 | Outpatient (CLI) | payer MEDICARE, SELFPAY ==
--- NOTE | 2021-07-16 07:14 | USCV_ITS ---
Brenda Thomas Age: 71 Gender: F : 1950 Exam Date: 07/16/2021 07:52 Ordering Phys: Troy Berrios DO Technologist: AMA [place]am [place] [facility] [place]ication: Syncope, Headache, Altered mental status BP: 155 / 97 HR: 63 Rhythm: Sinus Technical Quality: Adequate MEASUREMENTS (Male / Female) Normal Values 2D ECHO LV Diastolic Diameter PLAX 5.1 cm 4.2 - 5.9 / 3.9 - 5.3 cm LV Systolic Diameter PLAX 3.1 cm IVS Diastolic Thickness 1.1 cm 0.6 - 1.0 / 0.6 - 0.9 cm IVS Systolic Thickness 1.1 cm LVPW Diastolic Thickness 1.1 cm 0.6 - 1.0 / 0.6 - 0.9 cm LVPW Systolic Thickness 1.3 cm LVOT Diameter 2.0 cm LV Ejection Fraction 2D Teich 66.3 % LV Ejection Fraction MOD 2C 59.5 % LV Ejection Fraction 2C AL 60.4 % LA Diameter 3.5 cm Aorta at Sinotubular Diameter 2.3 cm M-MODE Aortic Annulus Diameter 2.6 cm LA Ao Ratio MM 1.5 MV E Point Septal Separation 0.3 cm DOPPLER AV Peak Velocity 125.0 cm/s LVOT Peak Velocity 91.0 cm/s AV Area Cont Eq vti 2.4 cm squared AV Area Cont Eq pk 2.3 cm squared MV Area PHT 5.0 cm squared Mitral E to A Ratio 1.1 MV E' Velocity 50.5 cm/s Mitral E to MV E' Ratio 9.2 Mitral E to LV E' Lateral Ratio 11.2 Mitral E to LV E' Septal Ratio 7.8 TR Peak Velocity 244.1 cm/s TR Peak Gradient 23.8 mmHg TR Mean Velocity 197.2 cm/s TR Mean Gradient 17.1 mmHg TR Velocity Time Integral 88.7 cm TV Peak E Velocity 54.0 cm/s PV Peak Velocity 66.0 cm/s FINDINGS Left Ventricle Normal left ventricular size, systolic function and wall thickness, with no regional wall motion abnormalities. Left ventricular ejection fraction is estimated at 70 %. Normal diastolic function. Right Ventricle Normal right ventricular size and systolic function. Right ventricular systolic pressure 30 mmHg. Right Atrium Normal right atrial size. Left Atrium Normal left atrial size. Mitral Valve Structurally normal mitral valve. No mitral valve stenosis. Trace mitral valve regurgitation. Aortic Valve Structurally normal trileaflet aortic valve. No aortic valve stenosis. No aortic valve regurgitation. Tricuspid Valve Structurally normal tricuspid valve. No tricuspid valve stenosis. Trace to mild tricuspid valve regurgitation. Pulmonic Valve Pulmonic valve not well visualized. No pulmonary valve stenosis. Trace pulmonary valve regurgitation. Pericardium No pericardial effusion. Aorta Normal size aortic root and proximal ascending aorta. CONCLUSIONS 1. Normal left ventricular size, systolic function and wall thickness, with no regional wall motion abnormalities. Left ventricular ejection fraction is estimated at 70 %. Normal diastolic function. 2. Pulmonary artery pressure mild increased at 30 mm Hg. 3. Trace to mild tricuspid valve regurgitation. 4. No prior similar studies to compare. Chantelle Maldonado MD (Electronically Signed) Final Date: 18 July 2021 20:08 S
--- NOTE | 2021-07-16 07:15 | USCV_ITS ---
Brenda Thomas Age: 71 Gender: F : 1950 Exam Date: 07/16/2021 07:28 Ordering Phys: Troy Berrios DO Technologist: AMA Exam Location: [facility] – [place] Indication: Syncope, headache, Altered mental status Risk Factors: Previous Vascular Surgery: Right Brachial BP: / Left Brachial BP: / Right Left Velocity (cm/s) Spectral Plaque Velocity (cm/s) Spectral Plaque Syst/Diast Broadening Syst/Diast Broadening 61.70/ 20.90 Prox CCA 60.00 / 22.40 82.70/ 28.70 Mid CCA 76.10 / 25.40 67.80/ 28.40 Distal CCA 86.00 / 33.10 53.60/ 21.50 Prox ICA 69.70 / 27.60 66.30/ 21.50 Mid ICA 66.80 / 24.10 37.90/ 16.00 Distal ICA 38.90 / 18.60 63.20 ECA 138.70 0.80 ICA/CCA 0.92 Antegrade Vertebral Antegrade 27.20/ 11.20 cm/s 38.50/ 13.70 cm/s Tri Subclavian Tri 53.40 80.80 CONCLUSIONS Right ICA stenosis <50%. Left ICA stenosis <50%. Normal antegrade Doppler flow noted in the left vertebral artery. Normal antegrade Doppler flow noted in the right vertebral artery. Buck Dotson MD (Electronically Signed) Final Date: 16 July 2021 09:58 S
== END 2021-07-16 07:10 | disposition home or self-care (01) ==
PROVIDERS: PCP Electrodiagnostic Medicine; Visit Provider Electrodiagnostic Medicine
DX: R55 Syncope and collapse (principal); R41.82 Altered mental status, unspecified; G45.4 Transient global amnesia; I07.1 Rheumatic tricuspid insufficiency
CPT/HCPCS: 93306; 93880

== ENCOUNTER 2021-12-15 22:58 | Emergency (ER) | payer MEDICARE, SELFPAY ==
[2021-12-15 23:04] VITALS: BP 172/80; PULSE 77; RESP 22; TEMP 37; O2SAT 100; BMI 26.6
[2021-12-15 23:37] VITALS: BP 145/77; PULSE 67; RESP 16; O2SAT 93
--- NOTE | 2021-12-15 23:51 | ECG_ITS ---
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 Measurements Intervals [place] Rate: 70 P: 27 CO: 138 QRS: 2 QRSD: 102 T: 4 QT: 388 QTc: 420 Interpretive Statements SINUS RHYTHM Compared to ECG 05/01/2021 04:41:56 Indeterminate axis no longer present Myocardial infarct finding no longer present Electronically Signed On 12-16-2021 18:22:37 CDT by Norberto Ford M.D. [id number]
--- NOTE | 2021-12-15 23:51 | CTR_ITS ---
PROCEDURE INFORMATION: Exam: CT Abdomen And Pelvis Without Contrast Exam date and time: 12/16/2021 12:55 AM Age: 71 years old Clinical indication: Abdominal pain; Acute; Prior surgery; Additional info: Epigastric pain TECHNIQUE: Imaging protocol: Computed tomography of the abdomen and pelvis without contrast. Radiation optimization: All CT scans at this facility use at least one of these dose optimization techniques: automated exposure control; mA and/or kV adjustment per patient size (includes targeted exams where dose is matched to clinical indication); or iterative reconstruction. COMPARISON: No relevant prior studies available. RADIATION DOSE METRICS: Total DLP (mGy-cm): 1117.44 FINDINGS: Heart: Calcifications are seen in the LAD coronary artery. Diaphragm: There is a small hiatal hernia present. Liver: Normal. No mass. Gallbladder and bile ducts: Gallbladder is contracted. Pancreas: Normal. No ductal dilation. Spleen: Normal. No splenomegaly. Adrenal glands: Normal. No mass. Kidneys and ureters: Normal. No hydronephrosis. Stomach and bowel: Diverticula are present on the colon. There are no inflammatory changes seen to suggest diverticulitis. Appendix: The appendix is visualized and is normal in configuration. Intraperitoneal space: Unremarkable. No free air. No significant fluid collection. Vasculature: Calcifications are present within the thoracic and abdominal aorta, iliac arteries bilaterally. Lymph nodes: Unremarkable. No enlarged lymph nodes. Urinary bladder: Unremarkable as visualized. Reproductive: Unremarkable as visualized. Bones/joints: Unremarkable. No acute fracture. Soft tissues: Unremarkable. CT/CT abdomen pelvis con [id number] IMPRESSION: 1. There are no acute abdominal findings. 2. Small hiatal hernia 3. Diverticulosis 4. Normal appendix 5. No evidence for ureteral obstruction
[2021-12-15 23:55] LABS: Basophils # 0.1 10^3/uL (0.0-0.1); Basophils % 0.5 %; Eosinophils # 0.1 10^3/uL (0.0-0.8); Eosinophils % 0.6 %; Hematocrit 41.4 % (37.0-47.0); Lymphocytes # 4.5 10^3/uL (0.8-4.8); Lymphocytes % 28.7 %; Mean Corpuscular HGB Conc 33.8 g/dL (30.0-36.0); Mean Corpuscular Hemoglobin 33.9 pg (28.0-34.0); Mean Corpuscular Volume 100.2 fl (81-99); Mean Platelet Volume 10.8 fL (7.4-10.4); Monocytes # 1.4 10^3/uL (0.2-0.9); Monocytes % 8.8 %; Neutrophils # 8.98 10^3/uL (1.8-7.7); Neutrophils % 57.4 %; Nucleated Red Blood Cells % 0 %; Platelet Count 294 10^3/cmm (130-400); Red Blood Count 4.13 10^6/uL (4.1-5.3); Red Cell Distribution Width 12.8 % (12.1-15.1); White Blood Count 15.7 10^3/uL (4.0-10.0)
[2021-12-16 00:11] LABS: Lactate (Lactic Acid level) 1.7 mmol/L (0.5-2.2)
[2021-12-16] MEDS: sodium chloride 0.9% 1,000 ML 999 ML IV (00:23)
[2021-12-16 00:26] LABS: Add Urine Microscopic? NO; Charge for UA Resulting for Rev
[2021-12-16 00:28] LABS: Bilirubin Urine Neg (Negative); Blood Urine Neg (Negative); Glucose Urine UA Norm (Normal); Ketones Urine Negative (Negative); Leukocyte Esterase Urine Negative (Negative); Nitrate Urine Negative (Negative); Protein Urine Neg (Negative); Specific Gravity, Urine 1.015 (1.005-1.030); Urine Appearance Clear (CLEAR); Urine Color Straw (Yellow); Urobilinogen Urine Norm (Negative); pH Urine 7 (5-7)
[2021-12-16] MEDS: morphine 4 mg/mL SDV 1 mL IVP ×2 (00:35→02:16)
[2021-12-16] MEDS: ondansetron 2 mg/ML SDV 2 mL 4 MG IVP (00:35)
[2021-12-16] MEDS: lidocaine 2% viscous 15 ML, aluminum-mag hydrox-simethicon 30 ML, sucralfate oral liq 1 GM PO (00:35)
[2021-12-16 00:36] LABS: Alanine Aminotransferase 34 U/L (0-33); Albumin Level 4.2 g/dL (3.5-5.2); Alkaline Phosphatase 88 IU/L (35-105); Anion Gap 14.3 (5-19); Aspartate Amino Transferase 24 U/L (0-32); Blood Urea Nitrogen 21 mg/dL (8-23); Calcium 9.5 mg/dL (8.5-10.5); Carbon Dioxide 27 mmol/L (22-29); Chloride 101 mmol/L (98-107); Creatinine Clr Calc Pharmacy 66.2488; Globulin 2.5 g/dL (1.3-4.6); Glomerular Filtration Rate 99.1 mL/min (90-130); Glucose 108 mg/dL (65-115); Lipase 82 U/L (13-60); Osmolality Calculated 292 mOsm/kg (285-295); Potassium 3.3 mmol/L (3.5-5.1); Sodium 139 mmol/L (136-145); Total Bilirubin 0.3 mg/dL (0.15-1.2); Total Protein 6.7 g/dL (6.6-8.7)
--- NOTE | 2021-12-16 00:42 | W.ED.ABDPA2 ---
HPI - Abdominal Pain General: Chief Complaint: Abdominal Pain Stated Complaint: abd pain, vomiting Time Seen by Provider: 12/15/21 23:32 Source: patient and family History of Present Illness: 71-year-old female with sudden onset of epigastric abdominal pain prior to arrival. This was about 15 to 30 minutes prior to arrival. She began to vomit as well. 2-3 episodes of emesis prior to arrival. She is feeling somewhat improved currently, although she still has belly pain. No history of belly surgery. She notes that she ate some watermelon earlier, but ate the same watermelon and is not sick. No diarrhea. No blood in the vomitus. Pertinent past history: none Onset (ago): minute(s) Pain Consistency: constant Location: Epigastric Quality: cramping and stabbing Radiation: none Migration to: no migration Exacerbating factors: vomiting Relieving factors: nothing Associated Symptoms: Reports dyspepsia, nausea and vomiting; Denies chills, constipation, diarrhea, dysuria, fever(s), hematuria and hematemesis Review of Systems Const: Denies: fever(s) or chills Eyes: Denies: change in vision ENMT: Denies: throat pain Card: Denies: chest pain Resp: Reports: non-productive cough; Denies: dyspnea or productive cough GI: Reports: nausea and vomiting; Denies: hematemesis, diarrhea or constipation : Denies: dysuria or hematuria Neuro: Reports: headache(s); Denies: numbness in extremities or weakness in extremities [facility] ED PFSH: Medical History Hypertension No pertinent family history Surgical History (Updated 05/01/21 @ 06:16 by Cande Giraldo MD) No pertinent past surgical history Social History Smoking and tobacco status: unknown if ever smoked Alcohol intake: unknown Physical Exam Const: GENERAL APPEARANCE: cooperative; not frail appearing HENMT: COMMON NORMALS: normocephalic and atraumatic HEAD & SCALP: normocephalic and atraumatic Eye: COMMON NORMALS: Equal, round and reactive pupils present and EOMs intact bilaterally PUPIL: Yes Equal, round and reactive pupils present Neck/C-Spine: GENERAL: Yes trachea midline Chest: CHEST: Yes Symmetrical chest wall rise Resp: COMMON NORMALS: normal respiratory effort, No use of accessory muscles and clear to auscultation bilaterally AUSCULTATION: clear to auscultation bilaterally Cardio: COMMON NORMALS: regular rate and regular rhythm RATE: regular rate RHYTHM: regular rhythm GI: COMMON NORMALS: Normal to inspection, nondistended, normoactive bowel sounds present PALPATION: Yes Tenderness to palpation present (GI) (Epigastric and right upper quadrant) Extremity: COMMON NORMALS: no pedal edema Neuro: DR[place]AN COMA SCALE: document GCS findings [place] coma scale eye opening: Spontaneous [place] coma scale verbal response: Orientated [place] coma scale motor response: Obey commands Dragan coma scale total score: 15 Psych: COMMON NORMALS: mental status grossly normal ATTITUDE: Yes uncooperative Course Vital Signs: Vital signs: Vital Signs Temperature 98.6 F 12/16/21 03:26 Pulse Rate 68 12/16/21 03:26 Respiratory Rate 16 12/16/21 03:26 Blood Pressure 134/77 12/16/21 03:26 Pulse Oximetry 95 12/16/21 03:26 MDM - Abdominal Pain Medical Decision Making 71 year old female what's up again strike pain and vomiting. She has a headache following vomiting. This is improved after medication. Head CT is negative, performed due to possibility of intracranial hemorrhage from straining to vomit. Her white blood cell count is 15. Her abdominal CT fails to reveal any acute findings. Potassium is mildly low. She was given Iv fluid. She's feeling improved. Urinalysis is negative. With improvement in her symptoms, she'll be allowed home. Lab Data : 12/15/21 23:45 12/16/21 00:18 Labs/Radiology: Radiology Impressions Abdomen/Pelvis CT 12/15/21 23:51 IMPRESSION: 1. There are no acute abdominal findings. 2. Small hiatal hernia 3. Diverticulosis 4. Normal appendix 5. No evidence for ureteral obstruction Head CT 12/16/21 02:10 IMPRESSION: There are no acute intracranial findings. Stable head CT compared with 05/01/2021. Laboratory Results WBC 15.7 10^3/uL (4.0-10.0) H 12/15/21 23:45 RBC 4.13 10^6/uL (4.1-5.3) 12/15/21 23:45 Hgb 14.0 g/dL (11.5-15.3) 12/15/21 23:45 Hct 41.4 % (37.0-47.0) 12/15/21 23:45 MCV 100.2 fl (81-99) H 12/15/21 23:45 MCH 33.9 pg (28.0-34.0) 12/15/21 23:45 MCHC 33.8 g/dL (30.0-36.0) 12/15/21 23:45 RDW 12.8 % (12.1-15.1) 12/15/21 23:45 Plt Count 294 10^3/cmm (130-400) 12/15/21 23:45 MPV 10.8 fL (7.4-10.4) H 12/15/21 23:45 Neut % (Auto) 57.4 % 12/15/21 23:45 Lymph % (Auto) 28.7 % 12/15/21 23:45 [place] % (Auto) 8.8 % 12/15/21 23:45 Eos % (Auto) 0.6 % 12/15/21 23:45 Baso % (Auto) 0.5 % 12/15/21 23:45 Neut # (Auto) 8.98 10^3/uL (1.8-7.7) H 12/15/21 23:45 Lymph # (Auto) 4.5 10^3/uL (0.8-4.8) 12/15/21 23:45 [place] # (Auto) 1.4 10^3/uL (0.2-0.9) H 12/15/21 23:45 Eos # (Auto) 0.1 10^3/uL (0.0-0.8) 12/15/21 23:45 Baso # (Auto) 0.1 10^3/uL (0.0-0.1) 12/15/21 23:45 Nucleated RBC % (auto) 0 % 12/15/21 23:45 Nucleated RBCs # 0.0 /100WBC 12/15/21 23:45 Sodium 139 mmol/L (136-145) 12/16/21 00:18 Potassium 3.3 mmol/L (3.5-5.1) L 12/16/21 00:18 Chloride 101 mmol/L (98-107) 12/16/21 00:18 Carbon Dioxide 27 mmol/L (22-29) 12/16/21 00:18 Anion Gap 14.3 (5-19) 12/16/21 00:18 BUN 21 mg/dL (8-23) 12/16/21 00:18 Creatinine 0.6 mg/dL (0.5-0.9) 12/16/21 00:18 GFR Calculation 99.1 mL/min (90-130) 12/16/21 00:18 Glucose 108 mg/dL (65-115) 12/16/21 00:18 Calculated Osmolality 292 mOsm/kg (285-295) 12/16/21 00:18 Lactate 1.7 mmol/L (0.5-2.2) 12/15/21 23:45 Calcium 9.5 mg/dL (8.5-10.5) 12/16/21 00:18 Total Bilirubin 0.3 mg/dL (0.15-1.2) 12/16/21 00:18 AST 24 U/L (0-32) 12/16/21 00:18 ALT 34 U/L (0-33) H 12/16/21 00:18 Alkaline Phosphatase 88 IU/L (35-105) 12/16/21 00:18 C-Reactive Protein 3.0 mg/L (0.0-4.9) 12/16/21 00:18 Total Protein 6.7 g/dL (6.6-8.7) 12/16/21 00:18 Albumin 4.2 g/dL (3.5-5.2) 12/16/21 00:18 Globulin 2.5 g/dL (1.3-4.6) 12/16/21 00:18 Lipase 82 U/L (13-60) H 12/16/21 00:18 Urine Color Straw (Yellow) 12/16/21 00:08 Urine Appearance Clear (CLEAR) 12/16/21 00:08 Urine pH 7 (5-7) 12/16/21 00:08 Ur Specific [place] 1.015 (1.005-1.030) 12/16/21 00:08 Urine Protein Neg (Negative) 12/16/21 00:08 Urine Glucose (UA) Norm (Normal) 12/16/21 00:08 Urine Ketones Negative (Negative) 12/16/21 00:08 Urine Blood Neg (Negative) 12/16/21 00:08 Urine Nitrate Negative (Negative) 12/16/21 00:08 Urine Bilirubin Neg (Negative) 12/16/21 00:08 Urine Urobilinogen Norm mg/dL (Negative) 12/16/21 00:08 Ur Leukocyte Esterase Negative (Negative) 12/16/21 00:08 Discharge Plan Discharge Patient Disposition: Home Clinical Impression: Vomiting Condition: Stable Prescriptions: New ondansetron 4 mg film 4 mg PO DAILY PRN (Reason: nausea and vomiting) Qty: 10 0RF No Action atorvastatin 80 mg tablet 80 mg PO DAILY 0RF omeprazole 40 mg capsule,delayed release(DR/EC) 40 mg PO DAILY 0RF sertraline 25 mg tablet 25 mg PO DAILY 0RF oxybutynin chloride 5 mg tablet 5 mg PO DAILY 0RF Discharge Orders: Discharge ED (Routine); Ordered 12/16/21 Ordered By: Myles Mckeon Referrals: Troy Berrios, [Primary Care Provider] - 1-3 days Discharge Diet: Advance as tolerated Discharge Activity: Resume usual activity Patient Instructions: Acute Nausea and Vomiting (ED) Activity Restrictions/Additional Instructions: Return for worsening abdominal pain, vomiting liquids or medications, worsening headache, weakness, mental status changes, vision changes, etc. Follow a liquid diet for the next 12 to 24 hours, then advance as tolerated. Return also for fever greater than 100. You may use nausea medication scheduled every 6 hours for the next 24 hours, then as needed. Coding Level of Care Code ED Insurance Collector for Farzana Fwricky Exam Comprehensive
[2021-12-16 00:46] VITALS: BP 149/78; PULSE 65; RESP 16; TEMP 37; O2SAT 96
--- NOTE | 2021-12-16 02:10 | CTR_ITS ---
PROCEDURE INFORMATION: Exam: CT Head Without Contrast Exam date and time: 12/16/2021 2:36 AM Age: 71 years old Clinical indication: Pain; Headache not specified TECHNIQUE: Imaging protocol: Computed tomography of the head without contrast. Radiation optimization: All CT scans at this facility use at least one of these dose optimization techniques: automated exposure control; mA and/or kV adjustment per patient size (includes targeted exams where dose is matched to clinical indication); or iterative reconstruction. COMPARISON: CT head wo con* [id number] 05/01/2021 2:58 AM RADIATION DOSE METRICS: Total DLP (mGy-cm): 1112.58 FINDINGS: Brain: There is mild diffuse cerebral atrophy. Patchy areas of hypoattenuation are seen in the deep white matter of the cerebral hemispheres bilaterally compatible with deep white matter microvascular disease. There are bilateral hypoattenuation lesions within the basal ganglia appearing stable compared to 05/01/2021 compatible with chronic lacunar infarctions. Cerebral ventricles: No ventriculomegaly. Paranasal sinuses: Visualized sinuses are unremarkable. No fluid levels. Mastoid air cells: Visualized mastoid air cells are well aerated. Bones/joints: Unremarkable. No acute fracture. Soft tissues: Unremarkable. CT/CT head wo con* [id number] IMPRESSION: There are no acute intracranial findings. Stable head CT compared with 05/01/2021.
[2021-12-16 03:26] VITALS: BP 134/77; PULSE 68; RESP 16; TEMP 37; O2SAT 95
== END 2021-12-16 03:28 | disposition home or self-care (01) ==
PROVIDERS: Emergency Provider Emergency Medicine; PCP Electrodiagnostic Medicine
DX: R11.10 Vomiting, unspecified (principal); I10 Essential (primary) hypertension
CPT/HCPCS: 70450; 74176; 80053; 81003; 83605; 83690; 85025; 86140; 93005; 96361; 96374; 96375; 96376; 99285; J2270; J2405; J7030

== ENCOUNTER → 2022-01-13 07:24 | Outpatient (BNVA) | payer MEDICARE, SELFPAY | PROVIDERS: PCP Electrodiagnostic Medicine; Visit Provider Nurse Practitioner Family | DX: N39.41 Urge incontinence (principal); N39.0 Urinary tract infection, site not specified | CPT/HCPCS: 51798; 81003; 99213 ==

== ENCOUNTER 2022-08-25 07:03 | Outpatient (CLI) | payer MEDICARE, SELFPAY ==
--- NOTE | 2022-08-25 07:38 | MM_ITS ---
WS: [id number] Bilateral screening 3D tomosynthesis digital mammogram, 08/25/2022 Clinical Data: SCREENING Comparison: 05/10/2020, 04/18/2019, 04/16/2018, 04/15/2017, 04/21/2016, 03/20/2015, 01/18/2014, 10/11/2012, 11/01/2010. Findings: The breast parenchymal pattern shows fibroglandular tissue. No spiculated masses or clustered calcifi cations are seen. There are no secondary signs of carcinoma. MM/[place] [id number] Impression: 1. Negative bilateral mammogram unchanged. 2. Recommend annual screening mammograms. BIRADS: 1-Negative FOLLOW UP: 1 Year Follow-up The CAD amusement or recreation card checker was used.
== END 2022-08-25 07:04 | disposition home or self-care (01) ==
LOC: RAD 07:06
PROVIDERS: PCP Electrodiagnostic Medicine; Visit Provider Electrodiagnostic Medicine
DX: Z12.31 Encounter for screening mammogram for malignant neoplasm of breast (principal)
CPT/HCPCS: 77063; 77067

== ENCOUNTER 2023-01-05 20:00 | Outpatient (CLI) | payer MEDICARE, OTHER, SELFPAY | END 2023-01-05 20:01 | disposition home or self-care (01) | LOC: SLEEP 01-06 04:03 | PROVIDERS: PCP Electrodiagnostic Medicine; Visit Provider Electrodiagnostic Medicine | DX: G47.33 Obstructive sleep apnea (adult) (pediatric) (principal) | CPT/HCPCS: 95810 ==

== ENCOUNTER 2023-01-11 22:11 | Emergency (ER) | payer MEDICARE, OTHER, SELFPAY ==
[2023-01-11 22:16] VITALS: BP 120/66; PULSE 105; RESP 16; TEMP 36.8; O2SAT 96; BMI 26.6
--- NOTE | 2023-01-11 22:20 | CTR_ITS ---
PROCEDURE INFORMATION: Exam: CT Head Without Contrast Exam date and time: 01/11/2023 10:33 PM Age: 72 years old Clinical indication: Pain; Headache; Patient HX: C/O CHONG x 4 days; Additional info: Head ache TECHNIQUE: Imaging protocol: Computed tomography of the head without contrast. Radiation optimization: All CT scans at this facility use at least one of these dose optimization techniques: automated exposure control; mA and/or kV adjustment per patient size (includes targeted exams where dose is matched to clinical indication); or iterative reconstruction. REPORTING DATA: Count of CT and Cardiac NM exams in prior 12 months: This patient has received 0 known CTs and 0 known cardiac nuclear medicine studies in the 12 months prior to the current study. COMPARISON: CT head wo con* [id number] 12/16/2021 2:36 AM RADIATION DOSE METRICS: Total DLP (mGy-cm): 983.08 FINDINGS: Brain: There is mild small vessel disease. There is no evidence of acute parenchymal hemorrhage, extra-axial collection, or acute infarction. There is no mass effect, midline shift, or downward herniation. Cerebral ventricles: No ventriculomegaly. Paranasal sinuses: Visualized sinuses are unremarkable. No fluid levels. Mastoid air cells: Visualized mastoid air cells are well aerated. Bones/joints: Unremarkable. No acute fracture. Soft tissues: Unremarkable. CT/CT head wo con* [id number] IMPRESSION: Mild small vessel disease. No evidence of acute intracranial process.
--- NOTE | 2023-01-11 22:22 | W.ED.HEATRA ---
HPI - Head Injury General: Chief complaint: Head Injury Stated complaint: Headache Time Seen by Provider: 01/11/23 22:19 History of Present Illness: 72-year-old female comes in today with complaints of headache for 4 days with some upper respiratory symptoms. Patient reports chills but no recorded fever. Patient does have a history of migraine headaches. Patient takes medications for depression, high cholesterol, GERD, overactive bladder. Patient appears nontoxic. Patient appears in mild to moderate pain. Associated symptoms: Reports nausea and neck pain; Deny vomiting Review of Systems General: Reports: 10 or more systems reviewed and unremarkable except in HPI and below Const: Reports: malaise; Denies: fever(s) Eyes: Reports: eye discharge; Denies: photophobia ENMT: Reports: nasal discharge Card: Denies: chest pain Resp: Reports: non-productive cough; Denies: dyspnea GI: Reports: nausea; Denies: vomiting, diarrhea or constipation : Denies: difficulty voiding Musc: Reports: neck pain and back pain Skin/Breast: Denies: rash Neuro: Reports: headache(s) Psych: Denies: depression Endo: Denies: polyuria, polydipsia or tired all the time Joe/Lymph: Denies: easy bruising or easy bleeding PFSH ED PFSH: Medical History Hypertension No pertinent family history Recurrent UTI Surgical History No pertinent past surgical history Family History Mother , at age 85 Cancer Bladder Father , at age 73 Abuse, drug or alcohol Social History Smoking and tobacco status: never smoked Alcohol intake: never Substance/Drug Use: unknown Lives independently: Yes Household members: spouse Marital status: Current occupational status: retired Physical Exam Const: COMMON NORMALS: alert HENMT: COMMON NORMALS: normocephalic HEAD & SCALP: normocephalic NOSE: Nasal discharge present MOUTH: Normal oral and palatal mucosa present THROAT: posterior oropharynx abnormal erythema Neck/C-Spine: COMMON NORMALS: full ROM and no meningeal signs Resp: COMMON NORMALS: normal respiratory effort and clear to auscultation bilaterally AUSCULTATION: clear to auscultation bilaterally Cardio: COMMON NORMALS: regular rate and regular rhythm RATE: regular rate RHYTHM: regular rhythm GI: COMMON NORMALS: non-tender Back/Pelvis: COMMON NORMALS: thoracic and lumbar spine normal to inspection Extremity: COMMON NORMALS: normal to inspection Neuro: SENSORIUM/ORIENTATION: Yes alert MENINGEAL SIGNS: Yes no meningeal signs Skin: COMMON NORMALS: turgor normal GENERAL SKIN EXAM: turgor normal Course Vital Signs: Vital signs: Vital Signs Temperature 98.3 F 01/11/23 22:16 Pulse Rate 87 01/11/23 22:47 Respiratory Rate 14 01/11/23 22:47 Blood Pressure 154/87 01/11/23 22:47 Pulse Oximetry 97 01/11/23 22:47 Oxygen Delivery Me thod Room Air 01/11/23 22:16 MDM - Head Injury Medcial Decision Making 72-year-old female comes in today with complaints of headache for 4 days with nasal drainage and eye watering. On exam patient appears mildly unwell but not toxic. Patient appears in some mild to moderate pain. Respirations are even lungs are clear to auscultation. Vital signs are normal. Abdomen soft nontender. Skin is warm and dry. No focal neural deficits are noted. No signs of meningitis at this time. Differential diagnosis includes but not limited to migraine headache, upper respiratory infection, viral syndrome, sinusitis, meningitis, dehydration. Patient was given a migraine cocktail with 15 mg ketorolac, 10 mg of Reglan, and 8 mg of dexamethasone IV push. Patient had improvement of headache to the point she felt comfortable going home. Laboratory values showed no significant abnormalities with mild elevation in CRP and sed rate. A white blood cell count of 10,000. Mild elevation in AST's ALT's and alkaline phosphatase. Unremarkable urinalysis. COVID-19 test negative. Believe patient probably has upper respiratory infection. Due to patient's symptoms we will go ahead and cover for bacterial infection with doxycycline. Reviewed exam with patient with recommendations for treatment and follow-up. Patient reported understanding and agreed to plan. Lab Data 01/11/23 22:45 01/11/23 22:[address] 01/11/23 22:20 IMPRESSION: Mild small vessel disease. No evidence of acute intracranial process. Laboratory Results WBC 10.4 10^3/uL (4.0-10.0) H 01/11/23 22:45 RBC 4.30 10^6/uL (4.1-5.3) 01/11/23 22:45 Hgb 14.4 g/dL (11.5-15.3) 01/11/23 22:45 Hct 41.6 % (37.0-47.0) 01/11/23 22:45 MCV 96.7 fl (81-99) 01/11/23 22:45 MCH 33.5 pg (28.0-34.0) 01/11/23 22:45 MCHC 34.6 g/dL (30.0-36.0) 01/11/23 22:45 RDW 12.2 % (12.1-15.1) 01/11/23 22:45 Plt Count 230 10^3/cmm (130-400) 01/11/23 22:45 MPV 11.1 fL (7.4-10.4) H 01/11/23 22:45 Neut % (Auto) 76.6 % 01/11/23 22:45 Lymph % (Auto) 11.5 % 01/11/23 22:45 [place] % (Auto) 10.5 % 01/11/23 22:45 Eos % (Auto) 0.5 % 01/11/23:45 Baso % (Auto) 0.6 % 01/11/23:45 Neut # (Auto) 7.96 10^3/uL (1.8-7.7) H 01/11/23 22:45 Lymph # (Auto) 1.2 10^3/uL (0.8-4.8) 01/11/23 22:45 [place] # (Auto) 1.1 10^3/uL (0.2-0.9) H 01/11/23 22:45 Eos # (Auto) 0.1 10^3/uL (0.0-0.8) 01/11/23 22:45 Baso # (Auto) 0.1 10^3/uL (0.0-0.1) 01/11/23:45 Nucleated RBC % (auto) 0 % 01/11/23 22:45 Nucleated RBCs # 0.0 /100WBC 01/11/23 22:45 ESR 18 mm/hr (0-15) H 01/11/23 22:45 Sodium 139 mmol/L (136-145) 01/11/23 22:45 Potassium 3.6 mmol/L (3.5-5.1) 01/11/23 22:45 Chloride 103 mmol/L (98-107) 01/11/23 22:45 Carbon Dioxide 20 mmol/L (22-29) L 01/11/23 22:45 Anion Gap 19.6 (5-19) H 01/11/23 22:45 BUN 15 mg/dL (8-23) 01/11/23 22:45 Creatinine 0.6 mg/dL (0.5-0.9) 01/11/23 22:45 GFR Calculation 98.8 mL/min (90-130) 01/11/23 22:45 Glucose 125 mg/dL (65-115) H 01/11/23 22:45 Calculated Osmolality 290 mOsm/kg (285-295) 01/11/23 22:45 Calcium 8.9 mg/dL (8.5-10.5) 01/11/23 22:45 Total Bilirubin 0.3 mg/dL (0.15-1.2) 01/11/23 22:45 AST 51 U/L (0-32) H 01/11/23 22:45 ALT 60 U/L (0-33) H 01/11/23 22:45 Alkaline Phosphatase 111 U/L (35-105) H 01/11/23 22:45 C-Reactive Protein 19.8 mg/L (0.0-4.9) H 01/11/23 22:45 Total Protein 7.0 g/dL (6.6-8.7) 01/11/23 22:45 Albumin 4.2 g/dL (3.5-5.2) 01/11/23 22:45 Globulin 2.8 g/dL (1.3-4.6) 01/11/23 22:45 Urine Color Straw (Yellow) 01/11/23 23:19 Urine Appearance Clear (CLEAR) 01/11/23 23:19 Urine pH 6 (5-7) 01/11/23 23:19 Ur Specific [place] 1.005 (1.005-1.030) 08/06/23 23:19 Urine Protein Neg (Negative) 01/11/23 23:19 Urine Glucose (UA) Norm (Normal) 01/11/23 23:19 Urine Ketones 1+ (Negative) H 01/11/23 23:19 Urine Blood 2+ (Negative) H 01/11/23 23:19 Urine Nitrate Negative (Negative) 01/11/23 23:19 Urine Bilirubin Neg (Negative) 01/11/23 23:19 Urine Urobilinogen Norm mg/dL (Negative) 01/11/23 23:19 Ur Leukocyte Esterase Trace (Negative) H 01/11/23 23:19 Urine RBC 0-4 /hpf (0-2) H 01/11/23 23:19 Urine WBC 0-4 /hpf (0-5) H 01/11/23 23:19 Ur Squamous Epith Cells 0-4 /hpf (0-5) H 01/11/23 23:19 Amorphous Sediment Not Reportable 01/11/23 23:19 Urine Bacteria Trace /hpf (NONE) 01/11/23 23:19 Hyaline Casts Rare /lpf 01/11/23 23:19 Urine Mucus 1+ /hpf 01/11/23 23:19 SARS-CoV-2 Ag (Rapid) negative (Negative) 01/11/23 22:29 Discharge Plan Discharge Patient Disposition: Home Clinical Impression: Headache Qualifiers: Headache type: other headache syndrome Qualified Code(s): G44.89 - Other headache syndrome URI (upper respiratory infection) Qualifiers: URI type: unspecified URI Qualified Code(s): J06.9 - Acute upper respiratory infection, unspecified Condition: Stable Prescriptions: New doxycycline monohydrate 100 mg capsule 100 mg PO BID 7 Days Qty: 14 0RF No Action Myrbetriq 25 mg tablet extended release 24 hr 25 mg PO DAILY Qty: 30 12RF atorvastatin 80 mg tablet 80 mg PO DAILY omeprazole 40 mg capsule,delayed release(DR/EC) 40 mg PO DAILY sertraline 25 mg tablet 25 mg PO DAILY ondansetron 4 mg film 4 mg PO DAILY PRN (Reason: nausea and vomiting) Qty: 10 0RF Discharge Orders: Discharge ED (Routine); Ordered 01/11/23 Ordered By: To Torres Referrals: Troy Berrios, [Primary Care Provider] - Discharge Diet: Usual diet Discharge Activity: Increase activity as tolerated Patient Instructions: Upper Respiratory Infection (ED) Activity Restrictions/Additional Instructions: Drink plenty of fluids, take antibiotics as directed, follow-up with primary care as needed. Return to ER for worseing symptoms such as shortness of breath, inability to hold fluids down or new concerns. Coding Level of Care Code ED Pediatric Dental Assistant for Farzana Ashton
[2023-01-11] MEDS: sodium chloride 0.9% 250 ML IV (22:41)
[2023-01-11] MEDS: metoclopramide 5 mg/mL SDV 2 mL 10 MG IVP (22:45)
[2023-01-11] MEDS: ketorolac 30 mg/mL INJ 15 MG IVP (22:46)
[2023-01-11] MEDS: dexamethasone 4 mg/mL INJ 8 MG IVP (22:46)
[2023-01-11 22:47] VITALS: BP 154/87; PULSE 87; RESP 14; O2SAT 97
[2023-01-11 22:52] LABS: SARS Covid-2 Antigen negative (Negative)
[2023-01-11 22:53] LABS: Basophils # 0.1 10^3/uL (0.0-0.1); Basophils % 0.6 %; Eosinophils # 0.1 10^3/uL (0.0-0.8); Eosinophils % 0.5 %; Hematocrit 41.6 % (37.0-47.0); Hemoglobin 14.4 g/dL (11.5-15.3); Lymphocytes # 1.2 10^3/uL (0.8-4.8); Lymphocytes % 11.5 %; Mean Corpuscular HGB Conc 34.6 g/dL (30.0-36.0); Mean Corpuscular Hemoglobin 33.5 pg (28.0-34.0); Mean Corpuscular Volume 96.7 fl (81-99); Mean Platelet Volume 11.1 fL (7.4-10.4); Monocytes # 1.1 10^3/uL (0.2-0.9); Monocytes % 10.5 %; Neutrophils # 7.96 10^3/uL (1.8-7.7); Neutrophils % 76.6 %; Nucleated Red Blood Cells % 0 %; Platelet Count 230 10^3/cmm (130-400); Red Cell Distribution Width 12.2 % (12.1-15.1); White Blood Count 10.4 10^3/uL (4.0-10.0)
[2023-01-11 23:07] LABS: Erythrocyte Sedimentation Rate 18 mm/hr (0-15)
[2023-01-11 23:14] LABS: Alanine Aminotransferase 60 U/L (0-33); Albumin Level 4.2 g/dL (3.5-5.2); Alkaline Phosphatase 111 U/L (35-105); Anion Gap 19.6 (5-19); Aspartate Amino Transferase 51 U/L (0-32); Blood Urea Nitrogen 15 mg/dL (8-23); C Reactive Protein 19.8 mg/L (0.0-4.9); Calcium 8.9 mg/dL (8.5-10.5); Carbon Dioxide 20 mmol/L (22-29); Chloride 103 mmol/L (98-107); Creatinine Clr Calc Pharmacy 65.3157; Globulin 2.8 g/dL (1.3-4.6); Glomerular Filtration Rate 98.8 mL/min (90-130); Glucose 125 mg/dL (65-115); Osmolality Calculated 290 mOsm/kg (285-295); Potassium 3.6 mmol/L (3.5-5.1); Sodium 139 mmol/L (136-145); Total Bilirubin 0.3 mg/dL (0.15-1.2)
[2023-01-11 23:41] LABS: Add Urine Microscopic? YES; Bilirubin Urine Neg (Negative); Blood Urine 2+ (Negative); Glucose Urine UA Norm (Normal); Ketones Urine 1+ (Negative); Leukocyte Esterase Urine Trace (Negative); Nitrate Urine Negative (Negative); Protein Urine Neg (Negative); Specific Gravity, Urine 1.005 (1.005-1.030); Urine Appearance Clear (CLEAR); Urine Color Straw (Yellow); Urobilinogen Urine Norm (Negative); pH Urine 6 (5-7)
[2023-01-11 23:42] LABS: RBC Urine 0-4 /hpf (0-2)
[2023-01-11 23:43] LABS: Add Urine Culture? No; Bacteria Urine TRACE /hpf; Hyaline Casts Urine RARE /lpf; Mucus Urine 1+ /hpf; Squamous Epithelial Cell Urine 0-4 /hpf (0-5); WBC Urine 0-4 /hpf (0-5)
[2023-01-12] MEDS: doxycycline 100 mg Tablet PO (00:27)
[2023-01-12 00:34] VITALS: BP 123/67; PULSE 85; RESP 16; O2SAT 99
== END 2023-01-12 00:35 | disposition home or self-care (01) ==
PROVIDERS: Emergency Provider Nurse Practitioner Family; PCP Electrodiagnostic Medicine
DX: R51.9 Headache, unspecified (principal); J06.9 Acute upper respiratory infection, unspecified
CPT/HCPCS: 70450; 80053; 81001; 85025; 85651; 86140; 87426; 96361; 96374; 96375; 99285; J1100; J1885; J2765; J7050

== ENCOUNTER 2023-11-20 06:00 | Outpatient (CLI) | payer MEDICARE, OTHER, SELFPAY | END 2023-11-20 06:01 | LOC: SPT 11-24 13:03 | PROVIDERS: PCP Electrodiagnostic Medicine; Visit Provider Specialist | DX: Z46.89 Encounter for fitting and adjustment of other specified devices (principal); M25.562 Pain in left knee | CPT/HCPCS: 99205; L1852 ==

== ENCOUNTER → 2023-11-20 10:34 | Outpatient (BNVA) | payer MEDICARE, OTHER, SELFPAY | PROVIDERS: PCP Electrodiagnostic Medicine; Referring Provider Electrodiagnostic Medicine; Visit Provider Specialist | DX: S82.142A Displaced bicondylar fracture of left tibia, initial encounter for closed fracture (principal); W18.2XXA Fall in (into) shower or empty bathtub, initial encounter | CPT/HCPCS: 73562 ==

== ENCOUNTER 2023-11-23 15:10 | Outpatient (CLI) | payer MEDICARE, OTHER, SELFPAY ==
--- NOTE | 2023-11-23 15:15 | CTR_ITS ---
PROCEDURE INFORMATION: Exam: CT Left Lower Extremity Without Contrast, Knee Exam date and time: 11/23/2023 3:40 PM Age: 73 years old Clinical indication: Injury or trauma; Fall; Blunt trauma; Knee; Left; Injury date: 11/12/23; Patient HX: Tibial plateau fracture 2 weeks ago; Additional info: Fracture, tibial plateau fracture TECHNIQUE: Imaging protocol: CT of the left lower extremity without contrast was performed. Exam focused on the knee. Axial, coronal and sagittal reformatted images were created and reviewed. Radiation optimization: All CT scans at this facility use at least one of these dose optimization techniques: automated exposure control; mA and/or kV adjustment per patient size (includes targeted exams where dose is matched to clinical indication); or iterative reconstruction. COMPARISON: CR XR knee LT 3V* [id number] 11/20/2023 10:36 AM RADIATION DOSE METRICS: Total DLP (mGy-cm): 442.44 FINDINGS: Bones/joints: Osteopenia. Comminuted, essentially nondisplaced subacute appearing fracture of the lateral tibial plateau with a proximally 3 mm depression. [id number] tricompartmental osteoarthrosis. No erosive or destructive change. No lytic or blastic lesion. Small suprapatellar effusion. Soft tissues: Mild anterior subcutaneous edema. Small popliteal cyst. CT/CT knee LT wo con* [id number] IMPRESSION: 1. Subacute appearing lateral tibial plateau fracture, as described above. 2. Small effusion. 3. Additional findings, as above.
== END 2023-11-23 15:11 | disposition home or self-care (01) ==
PROVIDERS: PCP Electrodiagnostic Medicine; Visit Provider Specialist
DX: S82.142A Displaced bicondylar fracture of left tibia, initial encounter for closed fracture (principal); M17.11 Unilateral primary osteoarthritis, right knee; M85.80 Other specified disorders of bone density and structure, unspecified site; M71.21 Synovial cyst of popliteal space [Baker], right knee
CPT/HCPCS: 73700

== ENCOUNTER → 2023-12-04 10:27 | Outpatient (BNVA) | payer MEDICARE, OTHER, SELFPAY | PROVIDERS: PCP Electrodiagnostic Medicine; Visit Provider Nurse Practitioner | DX: S82.142D Displaced bicondylar fracture of left tibia, subsequent encounter for closed fracture with routine healing (principal); X58.XXXD Exposure to other specified factors, subsequent encounter | CPT/HCPCS: 99213 ==

== ENCOUNTER 2024-07-01 07:58 | Outpatient (CLI) | payer MEDICARE, OTHER, SELFPAY ==
--- NOTE | 2024-07-01 | MM_ITS ---
WS: [id number] BILATERAL SCREENING DIGITAL TOMOSYNTHESIS MAMMOGRAM WITH CAD HISTORY: ANNUAL SCREEN COMPARISON: 08/25/2022, 05/10/2020 Bilateral CC and MLO views with tomosynthesis and synthetic mammography submitted. Computer aided det ection analyzed. Breast composition: There are scattered areas of fibroglandular density. No suspicious masses, microc alcifications or architectural distortion. Focal asymmetry in the upper outer quadrant of the LEFT br east. Benign calcifications LEFT breast. MM/MM scr BI tomosynthesis [id number] IMPRESSION: BI-RADS: 2 - Benign. FOLLOW UP: 1 Year Follow-up
== END 2024-07-01 07:59 | disposition home or self-care (01) ==
LOC: RAD 08:00
PROVIDERS: PCP Electrodiagnostic Medicine; Visit Provider Electrodiagnostic Medicine
DX: Z12.31 Encounter for screening mammogram for malignant neoplasm of breast (principal); R92.323 Mammographic fibroglandular density, bilateral breasts; N64.89 Other specified disorders of breast; R92.1 Mammographic calcification found on diagnostic imaging of breast
CPT/HCPCS: 77063; 77067

== ENCOUNTER 2024-10-16 13:00 | Inpatient (IN) | payer MEDICARE, OTHER, SELFPAY ==
[2024-10-16] VITALS (12 sets, daily range): BP systolic 89–129; BP diastolic 52–81; PULSE 60–81; RESP 2–16; TEMP 38.5; O2SAT 92–96; BMI 23.3
--- NOTE | 2024-10-16 13:42 | ECG_ITS ---
[facility] Date: 2024-10[facility]16 Pat Name: Brenda Thomas Department: Room: Gender: Female Instructional Technology Facilitator: : 1950 Requested By: Melvi Zavaleta Order Number: [id number] Angie MD: Erwin Shaw M.D. Measurements Intervals [place] Rate: 67 P: 42 MI: 145 QRS: 20 QRSD: 90 T: -1 QT: 392 QTc: 414 Interpretive Statements SINUS RHYTHM NONSPECIFIC T-WAVE ABNORMALITY Compared to ECG 12/16/2021 00:40:02 T-wave abnormality now present Electronically Signed On 10-16-2024 21:20:37 CDT by Erwin Shaw M.D. [email or web address]
[2024-10-16 13:46] LABS: Basophils # 0.1 10^3/uL (0.0-0.1); Basophils % 0.4 %; Eosinophils % 0.3 %; Hematocrit 38.4 % (36-47); Lymphocytes # 1.6 10^3/uL (0.8-4.8); Lymphocytes % 12.9 %; Mean Corpuscular HGB Conc 34.4 g/dL (30-55); Mean Corpuscular Hemoglobin 33.9 pg (27-33); Mean Corpuscular Volume 98.7 fl (85-98); Mean Platelet Volume 10.5 fL (7.4-10.4); Monocytes # 1.8 10^3/uL (0.2-0.9); Monocytes % 14.7 %; Neutrophils # 8.74 10^3/uL (1.8-7.7); Neutrophils % 71.3 %; Nucleated Red Blood Cells % 0 %; Platelet Count 227 10^3/cmm (157-399); Red Blood Count 3.89 10^6/uL (3.85-5.65); Red Cell Distribution Width 12.6 % (12.1-15.1); White Blood Count 12.26 10^3/uL (3.29-11.43)
[2024-10-16] MEDS: sodium chloride 0.9% 1,905.09 ML 1905.09 ML IV (14:01)
[2024-10-16 14:07] LABS: Lactic Sepsis W/Reflex 0.7 mmol/L (0.5-2.2)
[2024-10-16 14:08] LABS: Alanine Aminotransferase 21 U/L (0-33); Albumin Level 3.7 g/dL (3.5-5.2); Alkaline Phosphatase 79 U/L (35-105); Anion Gap 17.6 (5-19); Aspartate Amino Transferase 20 U/L (0-32); Blood Urea Nitrogen 16 mg/dL (8-23); C Reactive Protein 114.8 mg/L (0.0-4.9); Calcium 9.1 mg/dL (8.5-10.5); Carbon Dioxide 20 mmol/L (22-29); Chloride 102 mmol/L (98-107); Creatinine Clr Calc Pharmacy 59.8081; Globulin 3.8 g/dL (1.3-4.6); Glucose 114 mg/dL (65-115); Lipase 19 U/L (13-60); Osmolality Calculated 284 mOsm/kg (285-295); Potassium 3.6 mmol/L (3.5-5.1); Sodium 136 mmol/L (136-145); Total Bilirubin 0.8 mg/dL (0.15-1.2); Total Protein 7.5 g/dL (6.6-8.7)
--- NOTE | 2024-10-16 14:13 | W.ED.ABDPA2 ---
HPI - Abdominal Pain General: Chief Complaint: ER Hold Stated Complaint: neck and head pain Time Seen by Provider: 10/16/24 13:19 History of Present Illness: 74-year-old female with a history of recurrent urinary tract infections and hypertension who presents the emergency room with headache, nausea and vomiting, some aching central abdominal pain, neck pain and a headache. She is febrile on presentation and slightly hypotensive. Says she has had some cough. No shortness of breath. Generalized weakness. No focal motor deficits. No altered mental status. No nuchal rigidity. No diarrhea. No chest pain. 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 Skin symptoms: Negative except as documented in HPI. Eye symptoms: Negative except as documented in HPI. ENMT symptoms: Negative except as documented in HPI. Respiratory symptoms: Negative except as documented in HPI. Cardiovascular symptoms: Negative except as documented in HPI. Gastrointestinal symptoms: Negative except as documented in HPI. Genitourinary symptoms: Negative except as documented in HPI. Musculoskeletal symptoms: Negative except as documented in HPI. Neurologic symptoms: Negative except as documented in HPI. Psychiatric symptoms: Negative except as documented in HPI. Endocrine symptoms: Negative except as documented in HPI. [facility] ED PFSH: Medical History Recurrent UTI No pertinent family history Hypertension Surgical History No pertinent past surgical history Family History Mother , at age 85 Cancer Bladder Father , at age 73 Abuse, drug or alcohol Social History Smoking and tobacco/nicotine status: never used tobacco/nicotine Alcohol intake: never Substance/Drug Use: unknown Lives independently: Yes Household members: spouse Marital status: Current occupational status: retired Physical Exam Narrative: EXAM NARRATIVE: General: Alert, no acute distress. Skin: Warm, dry. Head: Normocephalic, atraumatic. Neck: Supple, trachea midline. Eye: Extraocular movements are intact. Ears, nose, mouth and throat: mucosa moist. Cardiovascular: Regular, Normal peripheral perfusion. Respiratory: Lungs are clear to auscultation, respirations are non-labored, breath sounds are equal, Symmetrical chest wall expansion. Gastrointestinal: Soft, Nontender, Non distended Musculoskeletal: Normal ROM, no deformity. Neurological: Alert and oriented, No focal neurological deficit observed. Psychiatric: Cooperative, appropriate mood & affect. Course Vital Signs: Vital signs: Vital Signs Temperature 101.3 F H 10/16/24 13:11 Pulse Rate 65 10/16/24 16:51 Blood Pressure 93/52 10/16/24 17:21 Pulse Oximetry 93 10/16/24 16:51 Oxygen Delivery Me thod Room Air 10/16/24 17:28 MDM - Abdominal Pain Medical Decision Making Medical decision making: Differential diagnosis for this patient with nausea and vomiting including but not limited to and based on the above HPI, review of systems and physical exam: Urinary tract infection. Appendicitis. Cholecystitis. Colitis. small bowel obstruction. crohn's flare. pancreatitis. gastritis. peptic ulcer. cyclic vomiting. Viral illness. Influenza. COVID. Orders placed to evaluate differential diagnosis based on the above differential, HPI and physical exam Lab Review: Laboratory results were reviewed and interpreted by myself the emergency room physician. Mild leukocytosis with white count of 12,000. Lactate is negative. CRP is elevated quite high at 115. Flu COVID and RSV are negative. Urine is positive for 21-50 whites but no bacteria. Chest x-ray: No acute process. No infiltrate. No pneumothorax. This was reviewed and interpreted by myself the emergency room physician. I also reviewed the radiology report. I reviewed the patient's medical record. Reexamination: Blood pressure has improved some. No increased work of breathing. No altered mental status. Consultation: Spoke Dr. Mann who is on-call for the hospital service who agrees to admission Assessment and plan: Urinary tract infection Possible sepsis Hypotension Leukocytosis ?Borderline for sepsis. She has some leukocytosis and elevated CRP and was hypotensive on presentation with a fever. However her lactate is negative. Treating her as if she is septic. -1.9 L normal saline bolus. 30 mL/kg. - IV cefepime given -Sepsis quality measures. -Lactic acid with a reflex was ordered. -Blood cultures were ordered. -I discussed the patient with the hospitalist on-call who is admitting the patient. - Discussed findings and plan with patient. Answered any questions. - All laboratory values were reviewed and interpreted personally by myself, the ER physician - All imaging was reviewed and interpreted personally by myself, the ER physician. - Evaluation and treatment of this problem were appropriate in the emergency setting Lab Data 10/16/24 13:35 10/16/24 13:35 Labs/Radiology: Radiology Impressions Cervical Spine X-Ray 10/16/24 14:14 IMPRESSION: No acute posttraumatic changes in the cervical spine. Chest X-Ray 10/16/24 14:14 IMPRESSION: No acute cardiopulmonary process. Laboratory Results WBC 12.26 10^3/uL (3.29-11.43) H 10/16/24 13:35 RBC 3.89 10^6/uL (3.85-5.65) 10/16/24 13:35 Hgb 13.20 g/dL (11.27-16.99) 10/16/24 13:35 Hct 38.4 % (36-47) 10/16/24 13:35 MCV 98.7 fl (85-98) H 10/16/24 13:35 MCH 33.9 pg (27-33) H 10/16/24 13:35 MCHC 34.4 g/dL (30-55) 10/16/24 13:35 RDW 12.6 % (12.1-15.1) 10/16/24 13:35 Plt Count 227 10^3/cmm (157-399) 10/16/24 13:35 MPV 10.5 fL (7.4-10.4) H 10/16/24 13:35 Neut % (Auto) 71.3 % 10/16/24 13:35 Lymph % (Auto) 12.9 % 10/16/24 13:35 Sebastian % (Auto) 14.7 % 10/16/24 13:35 Eos % (Auto) 0.3 % 10/16/24 13:35 Baso % (Auto) 0.4 % 10/16/24 13:35 Neut # (Auto) 8.74 10^3/uL (1.8-7.7) H 10/16/24 13:35 Lymph # (Auto) 1.6 10^3/uL (0.8-4.8) 10/16/24 13:35 Sebastian # (Auto) 1.8 10^3/uL (0.2-0.9) H 10/16/24 13:35 Eos # (Auto) 0.0 10^3/uL (0.0-0.8) 10/16/24 13:35 Baso # (Auto) 0.1 10^3/uL (0.0-0.1) 10/16/24 13:35 Nucleated RBC % (auto) 0 % 10/16/24 13:35 Nucleated RBCs # 0.0 /100WBC 10/16/24 13:35 Sodium 136 mmol/L (136-145) 10/16/24 13:35 Potassium 3.6 mmol/L (3.5-5.1) 10/16/24 13:35 Chloride 102 mmol/L (98-107) 10/16/24 13:35 Carbon Dioxide 20 mmol/L (22-29) L 10/16/24 13:35 Anion Gap 17.6 (5-19) 10/16/24 13:35 BUN 16 mg/dL (8-23) 10/16/24 13:35 Creatinine 0.6 mg/dL (0.5-0.9) 10/16/24 13:35 GFR Calculation Not Reportable 10/16/24 13:35 Glucose 114 mg/dL (65-115) 10/16/24 13:35 Calculated Osmolality 284 mOsm/kg (285-295) L 10/16/24 13:35 Lactic Acid 0.7 mmol/L (0.5-2.2) 10/16/24 13:35 Calcium 9.1 mg/dL (8.5-10.5) 10/16/24 13:35 Total Bilirubin 0.8 mg/dL (0.15-1.2) 10/16/24 13:35 AST 20 U/L (0-32) 10/16/24 13:35 ALT 21 U/L (0-33) 10/16/24 13:35 Alkaline Phosphatase 79 U/L (35-105) 10/16/24 13:35 C-Reactive Protein 114.8 mg/L (0.0-4.9) H 10/16/24 13:35 Total Protein 7.5 g/dL (6.6-8.7) 10/16/24 13:35 Albumin 3.7 g/dL (3.5-5.2) 10/16/24 13:35 Globulin 3.8 g/dL (1.3-4.6) 10/16/24 13:35 Lipase 19 U/L (13-60) 10/16/24 13:35 Urine Color Yellow (Yellow) 10/16/24 14:40 Urine Appearance Clear (CLEAR) 10/16/24 14:40 Urine pH 6.0 (5-7) 10/16/24 14:40 Ur Specific [place] 1.016 (1.005-1.030) 10/16/24 14:40 Urine Protein 1+ (Negative) A 10/16/24 14:40 Urine Glucose (UA) Negative (Normal) 10/16/24 14:40 Urine Ketones Negative (Negative) 10/16/24 14:40 Urine Blood Trace (Negative) A 10/16/24 14:40 Urine Nitrate Negative (Negative) 10/16/24 14:40 Urine Bilirubin Negative (Negative) 10/16/24 14:40 Urine Urobilinogen 1.0 mg/dL (Negative) 10/16/24 14:40 Ur Leukocyte Esterase 2+ (Negative) A 10/16/24 14:40 Urine RBC 0-2 /hpf (0-2) 10/16/24 14:40 Urine WBC 21-50 /hpf (0-5) H 10/16/24 14:40 Ur Squamous Epith Cells 6-10 /hpf (0-5) 10/16/24 14:40 Amorphous Sediment Not Reportable 10/16/24 14:40 Urine Bacteria None seen /hpf (NONE) 10/16/24 14:40 Hyaline Casts 0.81 /lpf 10/16/24 14:40 Influenza A (PCR) Negative (Negative) 10/16/24 13:55 Influenza Type B (PCR) Negative (Negative) 10/16/24 13:55 RSV (PCR) Negative (Negative) 10/16/24 13:55 SARS-CoV-2 (PCR) Negative (Negative) 10/16/24 13:55 All radiology interpretation(s) finalized by discharge Discharge Plan Discharge Patient Disposition: Admitted As Inpatient Admit Provider: Erika Mann Clinical Impression: Recurrent UTI, Sepsis Condition: Stable Coding Level of Care Code 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
--- NOTE | 2024-10-16 14:14 | XRR_ITS ---
PROCEDURE INFORMATION: Exam: XR Chest Exam date and time: 10/16/2024 2:51 PM Age: 74 years old Clinical indication: Fever; Additional info: Fever, sepsis TECHNIQUE: Imaging protocol: Radiologic exam of the chest. Views: 1 view. COMPARISON: CR XR chest 1V portable [id number] 05/01/2021 2:43 AM FINDINGS: Lungs: Bibasilar atelectasis. No consolidation. Pleural spaces: Unremarkable. No pleural effusion. No pneumothorax. Heart/Mediastinum: The heart is enlarged. Vasculature: There is unfolding of the thoracic aorta. There are aortic arch calcifications. Bones/joints: There are mild degenerative changes of the glenohumeral joint. XR/XR chest 1V portable [id number] IMPRESSION: No acute cardiopulmonary process.
--- NOTE | 2024-10-16 14:14 | XRR_ITS ---
PROCEDURE INFORMATION: Exam: XR Cervical Spine Exam date and time: 10/16/2024 2:53 PM Age: 74 years old Clinical indication: Neck pain; Additional info: Neck pain after chiropractor TECHNIQUE: Imaging protocol: Radiologic exam of the cervical spine. Views: 2 or 3 views. COMPARISON: CR (CHEST, ) 10/16/2024 2:51 PM FINDINGS: Bones/joints: The cervical spine demonstrates moderate degenerative changes at multiple levels. Mild anterolisthesis of C5 over C6. Mild retrolisthesis of C6 over C7. No acute fracture, compression deformity or spondylolisthesis. Dental hardware. Soft tissues: Unremarkable. XR/XR cervical spine 3V* [id number] IMPRESSION: No acute posttraumatic changes in the cervical spine.
[2024-10-16 14:45] LABS: Influenza A NEGATIVE (Negative); Influenza B NEGATIVE (Negative); Respiratory Syncytial Virus Ce NEGATIVE (Negative); SARS-CoV-2 PCR NEGATIVE (Negative)
[2024-10-16 15:04] LABS: Bilirubin Urine Negative (Negative); Blood Urine Trace (Negative); Glucose Urine UA Negative (Normal); Ketones Urine Negative (Negative); Leukocyte Esterase Urine 2+ (Negative); Nitrate Urine Negative (Negative); Protein Urine 1+ (Negative); Specific Gravity, Urine 1.016 (1.005-1.030); Urine Appearance Clear (CLEAR); Urine Color Yellow (Yellow)
[2024-10-16 15:09] LABS: Bacteria Urine None Seen /hpf; Hyaline Casts Urine 0.81 /lpf; RBC Urine 0-2 /hpf (0-2); WBC Urine 21-50 /hpf (0-5)
[2024-10-16 15:16] LABS: Add Urine Culture? Yes
[2024-10-16] MEDS: cefepime 2,000 mg SDV 2000 MG IVP (15:48)
[2024-10-16] MEDS: acetaminophen 500 mg Tablet 1000 MG PO (15:48)
--- NOTE | 2024-10-16 17:24 | PM.HP ---
Providers/Chief Complaint Admitting Physician: Erika Mann MD Primary Care Provider: Troy Berrios DO Chief Complaint: neck and head pain History of Present Illness Brenda Thomas is a 74 year old female with past medical history of recurrent UTIs, urinary urgency presented to the hospital today for complaint of headache nausea vomiting abdominal pain and urinary frequency. She reports a fever at home. Denies nuchal rigidity weakness. She says her fever started around [place] with no other symptoms present. She does not have altered mental status. Knows where she is knows who the president is knows her date of . Denies any abdominal pain. She says she went to her chiropractor a week ago and after that visit she has been having neck pain upon movement with neck pain going into her right shoulder. Patient does complain of reduced urination since the last 3 days. She states I have not been peeing very much. Found to be febrile in the ER 101.3. WBC 12,000, platelets 227, sodium 136, potassium 3.6, creatinine 0.6, glucose 114, lactic acid 0.7. Urinalysis positive for 25-50 WBCs, 2+ leukocyte esterase, 1+ protein, trace blood. 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, left #1 ea 11/20/23 10/16/24 Unknown Rx rotating shower chair #1 ea 11/20/23 10/16/24 Unknown Rx amoxicillin 500 mg capsule 500 mg PO BID 10/16/24 10/16/24 10/16/24 History famotidine 20 mg tablet 20 mg PO BID 10/16/24 10/16/24 10/16/24 History oxybutynin chloride 5 mg tablet 5 mg PO BID 10/16/24 10/16/24 10/16/24 History sertraline 50 mg tablet 50 mg PO DAILY 10/16/24 10/16/24 10/16/24 History valacyclovir 500 mg tablet 500 mg PO BID PRN viral 10/16/24 10/16/24 Unknown History Allergies Allergy/AdvReac Type Severity Reaction Status Date / Time No Known Allergies Allergy Verified 10/16/24 13:16 PFSH Acute PFSH: Medical History Recurrent UTI No pertinent family history Hypertension Surgical History No pertinent past surgical history Family History Mother , at age 85 Cancer Bladder Father , at age 73 Abuse, drug or alcohol Social History Smoking and tobacco/nicotine status: never used tobacco/nicotine Alcohol intake: never Substance/Drug Use: unknown Lives independently: Yes Household members: spouse Marital status: Current occupational status: retired Vitals/I&O/Wt Last Vital Signs Temp 101.3 F H 10/16/24 13:11 Pulse 65 10/16/24 16:51 BP 93/52 10/16/24 17:21 Pulse Ox 93 10/16/24 16:51 O2 Del Method Room Air 10/16/24 16:51 10/16/24 10/16/24 10/16/24 06:59 14:59 22:59 Intake Total 1904.1904. Balance 1904.1904. Weight last 48 hrs Weight 63.503 kg Physical Exam Narrative: General: Alert oriented x3, patient seen laying in bed appearing comfortable, appears ill HEENT: Normocephalic, atraumatic, EOMI, breathing room air Cardio: Regular rate rhythm, normal S1-S2, Respiratory: Clear to auscultation bilaterally GI: Abdomen soft, nontender, nondistended, bowel sounds + Extremities: No edema bilateral lower extremities Data 10/16/24 13:35 10/16/24 13:35 Micro: Microbiology 10/16/24 13:35 Blood Culture - Preliminary Blood SPECIMEN COLLECTED 10/16/24 13:38 Blood Culture - Preliminary Blood SPECIMEN COLLECTED A&P Assessment and plan (1) Urgency incontinence: (2) Recurrent UTI: (3) Sepsis: Plan #Sepsis secondary to UTI, criteria met by hypotension, fever, leukocytosis, #Urinary urgency #Reduced urination #Anxiety/depression #Hyperlipidemia #GERD ? Continue home atorvastatin, famotidine, oxybutynin, sertraline. ? Placed on IV cefepime 1 g twice daily ? Previous blood culture positive for Klebsiella in the past pansensitive and resistant to ampicillin. ? Await urine culture, blood cultures ? Tylenol for fever ? Continue normal saline at 125 cc/h. So far patient responding well to fluid however if needed may add Levophed. ? Patient is s/p normal saline bolus. ? Lactic acid negative ? Heparin SQ twice daily for DVT prophylaxis ? Continue DuoNeb every 6 hours as needed - Patient does not have any nuchal rigidity or neck stiffness. I do not believe this is meningitis. She does have fever but is not altered. She had chiropractic manipulation done about a week ago and since then has been having neck pain. ? Check CT neck with contrast. ? Check bladder scan and straight cath. Full code DVT prophylaxis: Heparin SQ twice daily PDMP PDMP Reviewed: Not Reviewed Attestations Medical Necessity Statement*: Expect greater than 2 midnight stay for management of UTI Diagnoses Urgency incontinence N39.41 Recurrent UTI N39.0 Sepsis A41.9
[2024-10-16 17:44] LABS: Procalcitonin 0.17 ng/mL (0-0.5)
[2024-10-16] MEDS: atorvastatin 40 mg Tablet 80 MG PO (17:53)
[2024-10-16] MEDS: famotidine 20 mg Tablet PO (17:54)
[2024-10-16] MEDS: oxybutynin 5 mg Tablet PO (17:54)
[2024-10-16] MEDS: sodium chloride 0.9% 1,000 ML 125 ML IV (17:56)
[2024-10-16] MEDS: heparin 5,000 unit/mL INJ 1 mL 5000 UNIT SUBCUT (17:58)
[2024-10-16 18:55] LABS: Lactic Sepsis W/Reflex 0.6 mmol/L (0.5-2.2)
[2024-10-17] VITALS (31 sets, daily range): BP systolic 90–152; BP diastolic 47–98; PULSE 51–82; RESP 14–28; TEMP 36.6–37.7; O2SAT 90–97
[2024-10-17] MEDS: sodium chloride 0.9% 1,000 ML 125 ML IV ×3 (01:49→20:21)
[2024-10-17] MEDS: acetaminophen 325 mg Tablet 650 MG PO ×2 (03:40→12:39)
[2024-10-17 04:58] LABS: Basophils % 0.4 %; Eosinophils # 0.2 10^3/uL (0.0-0.8); Eosinophils % 2.1 %; Lymphocytes # 2.3 10^3/uL (0.8-4.8); Lymphocytes % 25.5 %; Mean Corpuscular HGB Conc 31.9 g/dL (30-55); Mean Corpuscular Hemoglobin 33.6 pg (27-33); Mean Corpuscular Volume 105.3 fl (85-98); Mean Platelet Volume 10.9 fL (7.4-10.4); Monocytes # 1.4 10^3/uL (0.2-0.9); Monocytes % 15.8 %; Neutrophils # 5.04 10^3/uL (1.8-7.7); Neutrophils % 55.9 %; Nucleated Red Blood Cells % 0 %; Platelet Count 184 10^3/cmm (157-399); Red Blood Count 3.42 10^6/uL (3.85-5.65); White Blood Count 9.03 10^3/uL (3.29-11.43)
[2024-10-17] MEDS: cefepime 1,000 mg SDV 1000 MG IVP ×2 (05:05→17:13)
[2024-10-17] MEDS: heparin 5,000 unit/mL INJ 1 mL 5000 UNIT SUBCUT ×2 (05:05→17:09)
[2024-10-17 05:17] LABS: Anion Gap 15.8 (5-19); Blood Urea Nitrogen 14 mg/dL (8-23); Calcium 8.2 mg/dL (8.5-10.5); Carbon Dioxide 17 mmol/L (22-29); Chloride 112 mmol/L (98-107); Creatinine Clr Calc Pharmacy 63.9408; Glucose 92 mg/dL (65-115); Magnesium 1.9 mg/dL (1.7-2.3); Osmolality Calculated 292 mOsm/kg (285-295); Potassium 3.8 mmol/L (3.5-5.1); Sodium 141 mmol/L (136-145)
[2024-10-17] MEDS: famotidine 20 mg Tablet PO ×2 (08:34→17:12)
[2024-10-17] MEDS: oxybutynin 5 mg Tablet PO ×2 (08:34→17:12)
[2024-10-17] MEDS: sertraline 50 mg Tablet PO (08:34)
--- NOTE | 2024-10-17 13:12 | CT_ITS ---
WS: [id number] CT NECK WITH CONTRAST HISTORY: neck pain TECHNIQUE: Contiguous 2 mm axial images are performed through the neck with intravenous contrast. Sagittal and coronal reformats are also submitted. All CT scans at [facility] use at least one of these dose optimization techniques: automated exposure control; mA and/or kV adjustment per patient size (includes targeted exams where dose is matched to clinical indication); or iterative reconstruction. CONTRAST: CONTRAST: Omnipaque 350; 100 mL IV. DLP: 228.26 mGy.cm COMPARISON: None available. Nasopharynx, oropharynx, hypopharynx and larynx are unremarkable. No soft tissue masses or abnormal enhancement. Beam hardening artifact from dental amalgam at the base of the tongue. Torus tubarius and fossa of Rosenmuller and parapharyngeal fat are normal. No significant lymphadenopathy is identified. Thyroid gland and salivary glands are normally enhancing with no masses. Cervical spondylosis. Facet joint hypertrophy. Bilateral foraminal stenoses, greater on the RIGHT at several levels in the cervical spine. Visualized portions of the skull base demonstrate no abnormalities. Orbits and globes are within normal limits. No soft tissue masses. Air-fluid level sphenoid sinuses. Near complete opacification. Lung apices are clear. CT/CT neck w con* [id number] IMPRESSION: 1. No neck mass or adenopathy. 2. Acute sphenoid sinusitis. 3. Bilateral facet joint arthropathy with multiple levels of foraminal stenosi s.
--- NOTE | 2024-10-17 13:16 | P.PN_ITS ---
Subjective 2 Subjective: seen today complains of neck pain no stiffness noted Vitals/I&O/Wt Last Vital Signs Temp 97.9 F 10/17/24 05:14 Pulse 57 L 10/17/24 05:24 Resp 18 10/17/24 05:00 BP 135/65 10/17/24 05:00 Pulse Ox 94 10/17/24 05:00 O2 Del Method Room Air 10/16/24 23:08 10/16/24 10/17/24 10/17/24 22:59 06:59 14:59 Intake Total 1904. / 1904. 985.417 / 2890.507 1000 / 1000 Balance 1904. / 1904. 985.417 / 2890.507 1000 / 1000 Weight last 48 hrs Weight 73.799 kg Weight 63.503 kg Physical Exam 2 Narrative: General: Alert oriented x3, patient seen laying in bed appearing comfortable, appears ill, no neck stiffness HEENT: Normocephalic, atraumatic, EOMI, breathing room air Cardio: Regular rate rhythm, normal S1-S2, Respiratory: Clear to auscultation bilaterally GI: Abdomen soft, nontender, nondistended, bowel sounds + Extremities: No edema bilateral lower extremities Data 10/17/24 04:06 10/17/24 04:06 Micro: Microbiology 10/16/24 14:40 Urine Culture - Preliminary Urine,Clean Catch 10/16/24 13:35 Blood Culture - Preliminary Blood SPECIMEN COLLECTED 10/16/24 13:38 Blood Culture - Preliminary Blood SPECIMEN COLLECTED A&P Assessment and plan (1) Urgency incontinence: (2) Recurrent UTI: (3) Sepsis: Plan #Sepsis secondary to UTI, criteria met by hypotension, fever, leukocytosis, #Urinary urgency #Reduced urination #Anxiety/depression #Hyperlipidemia #GERD ? Continue home atorvastatin, famotidine, oxybutynin, sertraline. ? Placed on IV cefepime 1 g twice daily ? Previous blood culture positive for Klebsiella in the past pansensitive and resistant to ampicillin. ? Await urine culture, blood cultures ? Tylenol for fever ? Continue normal saline at 125 cc/h. So far patient responding well to fluid however if needed may add Levophed. ? Patient is s/p normal saline bolus. ? Lactic acid negative ? Heparin SQ twice daily for DVT prophylaxis ? Continue DuoNeb every 6 hours as needed - Patient does not have any nuchal rigidity or neck stiffness. I do not believe this is meningitis. She does have fever but is not altered. She had chiropractic manipulation done about a week ago and since then has been having neck pain. ? Check CT neck with contrast. ? Check bladder scan and straight cath. Full code DVT prophylaxis: Heparin SQ twice daily 10/17/[address] neck with contrast stop IV fluids check bladder scan urine output not recorded continue cefepime bid await urine culture transfer to [facility] PDMP PDMP Reviewed: Not Reviewed Attestations 2 Medical Necessity Statement*: Expect greater than 2 midnight stay for management of UTI Diagnoses Urgency incontinence N39.41 Recurrent UTI N39.0 Sepsis A41.9 Sepsis acute organ dysfunction status: without acute organ dysfunction
[2024-10-17] MEDS: ondansetron 2 mg/ML SDV 2 mL 4 MG IVP ×2 (14:55→14:58)
[2024-10-17] MEDS: atorvastatin 40 mg Tablet 80 MG PO (17:12)
--- NOTE | 2024-10-17 18:36 | PC.NURSE ---
Shift summary: Vss. Pt had a slight temp of 100F this afternoon. Sinus rhythm noted on monitor. Pt able to bear weight and ambulate to restroom. NS remains infusing at 125ml/hr. Pt has rested in bed with eyes closed for most of the shift. SHe stated afternoon she did not feel well. She has a fairly poor appetite as she has ate 50 or less of her meals. SHe has been up to the restroom several times to urinate. She did have a BM today. She has reported neck pain throughout shift. CT of neck completed today.
[2024-10-18] VITALS (12 sets, daily range): BP systolic 124–161; BP diastolic 67–80; PULSE 58–79; RESP 14–24; TEMP 36.3–37.1; O2SAT 90–96
[2024-10-18] MEDS: acetaminophen 325 mg Tablet 650 MG PO ×4 (01:51→22:05)
[2024-10-18 04:37] LABS: Basophils # 0.1 10^3/uL (0.0-0.1); Basophils % 0.7 %; Eosinophils # 0.3 10^3/uL (0.0-0.8); Eosinophils % 3.6 %; Hematocrit 33.2 % (36-47); Lymphocytes # 1.9 10^3/uL (0.8-4.8); Lymphocytes % 21.3 %; Mean Corpuscular HGB Conc 33.4 g/dL (30-55); Mean Corpuscular Volume 98.8 fl (85-98); Mean Platelet Volume 10.9 fL (7.4-10.4); Monocytes # 0.9 10^3/uL (0.2-0.9); Monocytes % 10.2 %; Neutrophils # 5.67 10^3/uL (1.8-7.7); Neutrophils % 63.9 %; Nucleated Red Blood Cells % 0 %; Platelet Count 232 10^3/cmm (157-399); Red Blood Count 3.36 10^6/uL (3.85-5.65); Red Cell Distribution Width 12.7 % (12.1-15.1); White Blood Count 8.88 10^3/uL (3.29-11.43)
[2024-10-18 04:51] LABS: Alanine Aminotransferase 21 U/L (0-33); Albumin Level 3.1 g/dL (3.5-5.2); Alkaline Phosphatase 66 U/L (35-105); Anion Gap 15.5 (5-19); Aspartate Amino Transferase 21 U/L (0-32); Blood Urea Nitrogen 8 mg/dL (8-23); Calcium 8.3 mg/dL (8.5-10.5); Carbon Dioxide 20 mmol/L (22-29); Chloride 108 mmol/L (98-107); Creatinine Clr Calc Pharmacy 63.9408; Globulin 3.3 g/dL (1.3-4.6); Glucose 105 mg/dL (65-115); Magnesium 1.8 mg/dL (1.7-2.3); Osmolality Calculated 289 mOsm/kg (285-295); Potassium 3.5 mmol/L (3.5-5.1); Sodium 140 mmol/L (136-145); Total Bilirubin 0.4 mg/dL (0.15-1.2); Total Protein 6.4 g/dL (6.6-8.7)
[2024-10-18] MEDS: sodium chloride 0.9% 1,000 ML 125 ML IV ×2 (05:01→17:37)
[2024-10-18] MEDS: heparin 5,000 unit/mL INJ 1 mL 5000 UNIT SUBCUT (05:38)
[2024-10-18] MEDS: cefepime 1,000 mg SDV 1000 MG IVP ×2 (05:38→17:38)
--- NOTE | 2024-10-18 06:14 | PC.NURSE ---
Report given to Maria Fernanda UMANZOR. Patient taken to room 271 via wheel chair.
--- NOTE | 2024-10-18 08:29 | MR_ITS ---
WS: [id number] MRI CERVICAL SPINE NONCONTRAST TECHNIQUE: Sagittal T1, T2 and STIR imaging. Axial T2, gradient, and fiesta imaging. CLINICAL INFORMATION: neck pain COMPARISON: None. FINDINGS: Straightening of the normal cervical lordosis. Slight anterolisthesis C4 on C5. Disc space narrowing worse at C5-C6 and C6-C7. C2-C3: Mild facet arthropathy. C3-C4: Severe RIGHT bony foraminal narrowing. Moderate RIGHT facet arthropathy with facet synovitis. Associated edema. Spinal canal is patent. C4-C5: Severe RIGHT bony foraminal narrowing. RIGHT facet synovitis with associated edema. Moderate to advanced RIGHT facet arthropathy. Spinal canal is patent. C5-C6: Severe RIGHT bony foraminal narrowing. Moderate to advanced RIGHT facet arthropathy. Moderate to severe LEFT bony foraminal narrowing. Spinal canal is patent. RIGHT facet synovitis. C6-C7: Disc osteophyte complex with endplate ridging. Small central disc osteophyte protrusion with mild central canal stenosis. Moderate LEFT greater than RIGHT bony foraminal narrowing. Moderate facet arthropathy. C7-T1: Mild RIGHT and no significant LEFT foraminal narrowing. Spinal canal is patent. Visualized brain stem structures: Normal. Prevertebral soft tissues: Normal. Small RIGHT thyroid nodule measuring 7.5 mm MR/MR cervical spin wo con* [id number] IMPRESSION: 1. Straightening of the normal cervical lordosis. Mild spondylitic changes. Sl ight anterolisthesis C4 on C5 and C5 on C6. 2. Prominent RIGHT facet synovitis with periarticular edema at C4-C5 and C5-C6 most likely inflammatory or degenerative. Recommend correlation with RIGHT nec k pain. No drainable fluid collections. 3. Mild central canal stenosis C6-7 with RIGHT paracentral disc osteophyte pro trusion and slight indentation on the cervical cord. 4. Severe RIGHT C3-C4 and C4-C5 bony foraminal narrowing. 5. Severe RIGHT greater than LEFT C5-C6 bony foraminal narrowing. Moderate RIG HT C6-7 bony foraminal narrowing.
[2024-10-18] MEDS: sertraline 50 mg Tablet PO (08:59)
[2024-10-18] MEDS: oxybutynin 5 mg Tablet PO ×2 (08:59→17:38)
[2024-10-18] MEDS: famotidine 20 mg Tablet PO ×2 (08:59→17:37)
--- NOTE | 2024-10-18 09:35 | MR_ITS ---
WS: [id number] MRI HEAD WITHOUT CONTRAST TECHNIQUE: Sagittal T1, T2 axial, T2 axial FLAIR, axial and coronal T1 images, axial susceptibility weighted imaging, axial diffusion weighted images, and coronal T2 images were obtained. CLINICAL INFORMATION: constant headache FINDINGS: No evidence of restricted diffusion to suggest acute ischemia. Ventricular system and basal cisterns are patent. Mild small vessel changes with moderate parenchymal volume loss. Normal posterior fossa. Normal vascular flow voids at the skull base. No extra-axial fluid collections. No evidence of mass or mass effect. Mucosal thickening with partial opacification of the sphenoid sinus. No hemosiderin. Normal optic chiasm and pituitary infundibulum. MR/MR head wo con* [id number] IMPRESSION: 1. No acute intracranial findings. 2. Mild small vessel changes with moderate parenchymal volume loss. 3. RIGHT mastoid effusion. 4. Mucosal thickening with partial opacification sphenoid sinus
--- NOTE | 2024-10-18 11:10 | PHA.VACGOAL ---
Vancomycin Goal - Goal Vancomycin Indication:: Other - Therapy Current therapy:: Cefepime Day of therpy:: Day []of [] . Actual body weight (kg): 162 lb - Data Labs: WBC 8.88 10^3/uL (3.29-11.43) 10/18/24 03:35 RBC 3.36 10^6/uL (3.85-5.65) L 10/18/24 03:35 Hgb 11.10 g/dL (11.27-16.99) L 10/18/24 03:35 Hct 33.2 % (36-47) L 10/18/24 03:35 MCV 98.8 fl (85-98) H D 10/18/24 03:35 MCH 33.0 pg (27-33) 10/18/24 03:35 MCHC 33.4 g/dL (30-55) 10/18/24 03:35 RDW 12.7 % (12.1-15.1) 10/18/24 03:35 Sodium 140 mmol/L (136-145) 10/18/24 03:35 Potassium 3.5 mmol/L (3.5-5.1) 10/18/24 03:35 Chloride 108 mmol/L (98-107) H 10/18/24 03:35 Carbon Dioxide 20 mmol/L (22-29) L 10/18/24 03:35 Anion Gap 15.5 (5-19) 10/18/24 03:35 BUN 8 mg/dL (8-23) 10/18/24 03:35 Creatinine 0.6 mg/dL (0.5-0.9) 10/18/24 03:35 GFR Calculation Not Reportable 10/18/24 03:35 Treatment plan:: new consult Regimen:: 750 MG Q12H
[2024-10-18] MEDS: VANCOMYCIN ADD-Vantage 750 MG in 0.9% NaCl ADD-Vantage 250 ML 250 MG IV ×2 (11:29→21:28)
--- NOTE | 2024-10-18 13:04 | P.PN_ITS ---
Subjective 2 Subjective: Seen this morning. Still complains of neck pain and headache. States neck pain radiates towards her head. She does have recurrent sinus infections. She states usually when she gets a sinus infection she does get neck pain however she also gets better but this time she is not getting better. Patient also had a low-grade fever yesterday White count has normalized. Alert oriented x 4. Urine culture negative. Vitals/I&O/Wt Last Vital Signs Temp 98.6 F 10/18/24 11:42 Pulse 61 10/18/24 11:42 Resp 14 10/18/24 11:42 BP 146/80 10/18/24 11:42 Pulse Ox 95 10/18/24 11:42 O2 Del Method Room Air 10/18/24 11:42 O2 Flow Rate 2 10/17/24 21:00 10/17/24 10/18/24 10/18/24 22:59 06:59 14:59 Intake Total 1400 / 2950 1000 / 3950 640 / 640 Balance 1400 / 2950 1000 / 3950 640 / 640 Weight last 48 hrs Weight 73.482 kg Weight 73.799 kg Weight 63.503 kg Physical Exam 2 Narrative: General: Alert oriented x3, patient seen laying in bed appearing comfortable, no neck stiffness HEENT: Normocephalic, atraumatic, EOMI, breathing room air Cardio: Regular rate rhythm, normal S1-S2, Respiratory: Clear to auscultation bilaterally GI: Abdomen soft, nontender, nondistended, bowel sounds + Extremities: No edema bilateral lower extremities Data 10/18/24 03:35 10/18/24 03:35 Micro: Microbiology 10/16/24 14:40 Urine Culture - Final Urine,Clean Catch 10/16/24 13:35 Blood Culture - Preliminary Blood NEGATIVE TO DATE 10/16/24 13:38 Blood Culture - Preliminary Blood NEGATIVE TO DATE A&P Assessment and plan (1) Urgency incontinence: (2) Recurrent UTI: (3) Sepsis: Plan #Sepsis secondary to UTI, criteria met by hypotension, fever, leukocytosis, #Urinary urgency #Reduced urination #Anxiety/depression #Hyperlipidemia #GERD #Neck pain, headache ? Continue home atorvastatin, famotidine, oxybutynin, sertraline. ? Placed on IV cefepime 1 g twice daily ? Previous blood culture positive for Klebsiella in the past pansensitive and resistant to ampicillin. ? Await urine culture, blood cultures ? Tylenol for fever ? Continue normal saline at 125 cc/h. So far patient responding well to fluid however if needed may add Levophed. ? Patient is s/p normal saline bolus. ? Lactic acid negative ? Heparin SQ twice daily for DVT prophylaxis ? Continue DuoNeb every 6 hours as needed - Patient does not have any nuchal rigidity or neck stiffness. I do not believe this is meningitis. She does have fever but is not altered. She had chiropractic manipulation done about a week ago and since then has been having neck pain. ? Check CT neck with contrast. ? Check bladder scan and straight cath. Full code DVT prophylaxis: Heparin SQ twice daily 10/17/[address] neck with contrast stop IV fluids check bladder scan urine output not recorded continue cefepime bid await urine culture transfer to [facility] 10/18/2024 Urine culture negative Denies nuchal rigidity neck stiffness. Low suspicion of meningitis however cannot be ruled out. Patient does have a fever from admission and had another low-grade fever yesterday. Neck pain is not improving. Check MRI C-spine, head Plan for lumbar puncture going forward. Hold DVT prophylaxis dose today. Patient agreeable for lumbar puncture if needed. Discussed with Dr. Barcenas who will review MRI images once they are available. Continue vancomycin, cefepime. CT soft tissue neck did show acute sphenoid sinusitis however her headache and neck pain are unexplained at this point. PDMP PDMP Reviewed: Not Reviewed Attestations 2 Medical Necessity Statement*: Expect greater than 2 midnight stay for management of UTI Diagnoses Urgency incontinence N39.41 Recurrent UTI N39.0 Sepsis A41.9 Sepsis acute organ dysfunction status: without acute organ dysfunction
[2024-10-18 15:34] LABS: Adenovirus Not Detected (NOT DETECT); Chlamydia Pneumoniae Not Detected (NOT DETECT); Coronavirus 229E,HKU1,NL63,OC4 Not Detected (NOT DETECT); Human Metapneumovirus Not Detected (NOT DETECT); Human Rhinovirus/Enterovirus Not Detected (NOT DETECT); Influenza A Not Detected (NOT DETECT); Influenza A H1 Not Detected (NOT DETECT); Influenza A H1-2009 Not Detected (NOT DETECT); Influenza A H3 Not Detected (NOT DETECT); Influenza B Not Detected (NOT DETECT); Mycoplasma Pneumoniae Not Detected (NOT DETECT); Parainfluenza Virus Type 1 Not Detected (NOT DETECT); Parainfluenza Virus Type 2 Not Detected (NOT DETECT); Parainfluenza Virus Type 3 Not Detected (NOT DETECT); Parainfluenza Virus Type 4 Not Detected (NOT DETECT); Respiratory Syncytial Virus A Not Detected (NOT DETECT); Respiratory Syncytial Virus B Not Detected (NOT DETECT); SARS-COV-2 Not Detected (NOT DETECT)
[2024-10-18] MEDS: atorvastatin 40 mg Tablet 80 MG PO (17:38)
--- NOTE | 2024-10-18 22:24 | PM.MISC ---
Miscellaneous Note Purpose of Documentation: Possible allergic reaction Note: I was called by the patient's nurse that the patient had hives. The nurse was concerned that it was due to the patient's antibiotics and paused the Vancomycin. When I arrived at the patient's room, she stated that she felt itchy in her back around 2 or 3pm and that she notified the daysmeft nurse earlier in the day. Upon examination, the patient does have erythematous and very pruritic maculopapular lesions on her back that are of different sizes. There were not lesions on her arms, chest or abdomen. The patient also wondered whether the lesions were due to bed bugs. I explained that bedbugs generally does not have the pattern that she has on her back. Also, the pruritic lesions seemed restricted just to her back and does not have a diffuse pattern that also involves the chest and abdomen that it typical for an allergic reaction to antibiotics. Nevertheless, we will start triamcinolone cream vs ointment for her back, give her a dose of benadryl tonight, monitor her skin for any new or worsening lesions. Will also continue Vancomycin. I also told her that if it were bedbugs, the pruritic lesions, may not be all over her back, but rather, it would likely start on her extremities.
[2024-10-18] MEDS: diphenhydrAMINE 25 mg Capsule PO ×2 (23:01)
[2024-10-18] MEDS: predniSONE 20 mg Tablet 40 MG PO (23:14)
[2024-10-19] VITALS (8 sets, daily range): BP systolic 133–152; BP diastolic 68–80; PULSE 56–76; RESP 16–18; TEMP 36.6–37; O2SAT 91–93
[2024-10-19] MEDS: sodium chloride 0.9% 1,000 ML 125 ML IV ×3 (02:16→17:42)
[2024-10-19 05:18] LABS: Basophils # 0.1 10^3/uL (0.0-0.1); Basophils % 0.7 %; Eosinophils % 0.4 %; Lymphocytes # 1.1 10^3/uL (0.8-4.8); Lymphocytes % 13.9 %; Mean Corpuscular HGB Conc 34.4 g/dL (30-55); Mean Corpuscular Hemoglobin 33.4 pg (27-33); Mean Platelet Volume 10.6 fL (7.4-10.4); Monocytes # 0.2 10^3/uL (0.2-0.9); Neutrophils % 82.6 %; Nucleated Red Blood Cells % 0 %; Platelet Count 273 10^3/cmm (157-399); Red Blood Count 3.71 10^6/uL (3.85-5.65); Red Cell Distribution Width 12.2 % (12.1-15.1); White Blood Count 7.62 10^3/uL (3.29-11.43)
[2024-10-19] MEDS: cefepime 1,000 mg SDV 1000 MG IVP ×2 (05:19→17:43)
[2024-10-19 05:50] LABS: Alanine Aminotransferase 24 U/L (0-33); Albumin Level 3.5 g/dL (3.5-5.2); Alkaline Phosphatase 73 U/L (35-105); Anion Gap 19.8 (5-19); Aspartate Amino Transferase 22 U/L (0-32); Blood Urea Nitrogen 9 mg/dL (8-23); Calcium 8.8 mg/dL (8.5-10.5); Carbon Dioxide 20 mmol/L (22-29); Chloride 105 mmol/L (98-107); Globulin 3.6 g/dL (1.3-4.6); Glucose 133 mg/dL (65-115); Magnesium 1.8 mg/dL (1.7-2.3); Osmolality Calculated 293 mOsm/kg (285-295); Potassium 3.8 mmol/L (3.5-5.1); Sodium 141 mmol/L (136-145); Total Bilirubin 0.5 mg/dL (0.15-1.2); Total Protein 7.1 g/dL (6.6-8.7)
[2024-10-19] MEDS: oxybutynin 5 mg Tablet PO ×2 (08:21→17:43)
[2024-10-19] MEDS: famotidine 20 mg Tablet PO ×2 (08:21→17:43)
[2024-10-19] MEDS: sertraline 50 mg Tablet PO (08:21)
[2024-10-19] MEDS: triamcinolone 0.5% cream 15 gm 1 APPLIC TOPICAL (12:45)
--- NOTE | 2024-10-19 13:00 | PC.SOCIAL ---
IMM Update pg 2 of IMM Updated and reviewed w/ patient. Copy provided and copy dated, initialed and placed in chart.
--- NOTE | 2024-10-19 13:02 | PC.SOCIAL ---
IMM Update pg 2 of IMM Updated and reviewed w/ patient. Copy provided and copy dated, initialed and placed in chart.
--- NOTE | 2024-10-19 13:22 | P.PN_ITS ---
Subjective 2 Subjective: Seen today. Patient afebrile over last 42 hours. Overnight had a rash develop after vancomycin infusion. Was given Benadryl. Infusion was continued. Patient is sitting up in bed appearing comfortable, at bedside. She is awaiting lumbar puncture today. Vitals/I&O/Wt Last Vital Signs Temp 98.1 F 10/19/24 11:42 Pulse 62 10/19/24 11:42 Resp 18 10/19/24 11:42 BP 144/75 10/19/24 11:42 Pulse Ox 92 10/19/24 11:42 O2 Del Method Room Air 10/19/24 11:42 O2 Flow Rate 2 10/17/24 21:00 10/18/24 10/19/24 10/19/24 22:59 06:59 14:59 Intake Total 600 / 1490 1250 / 2740 1600 / 1600 Balance 600 / 1490 1250 / 2740 1600 / 1600 Weight last 48 hrs Weight 70.76 kg Weight 73.482 kg Physical Exam 2 Narrative: General: Alert oriented x3, patient seen laying in bed appearing comfortable, able to touch chin to chest, states has mild pain doing so. HEENT: Normocephalic, atraumatic, EOMI, breathing room air Cardio: Regular rate rhythm, normal S1-S2, Respiratory: Clear to auscultation bilaterally GI: Abdomen soft, nontender, nondistended, bowel sounds + Extremities: No edema bilateral lower extremities Data 10/19/24 04:24 10/19/24 04:24 Micro: Microbiology 10/16/24 14:40 Urine Culture - Final Urine,Clean Catch A&P Assessment and plan (1) Urgency incontinence: (2) Recurrent UTI: (3) Sepsis: (4) Neck pain: (5) Synovitis: Plan #Sepsis secondary to UTI, criteria met by hypotension, fever, leukocytosis, #Urinary urgency #Reduced urination #Anxiety/depression #Hyperlipidemia #GERD #Neck pain, headache ? Continue home atorvastatin, famotidine, oxybutynin, sertraline. ? Placed on IV cefepime 1 g twice daily ? Previous blood culture positive for Klebsiella in the past pansensitive and resistant to ampicillin. ? Await urine culture, blood cultures ? Tylenol for fever ? Continue normal saline at 125 cc/h. So far patient responding well to fluid however if needed may add Levophed. ? Patient is s/p normal saline bolus. ? Lactic acid negative ? Heparin SQ twice daily for DVT prophylaxis ? Continue DuoNeb every 6 hours as needed - Patient does not have any nuchal rigidity or neck stiffness. I do not believe this is meningitis. She does have fever but is not altered. She had chiropractic manipulation done about a week ago and since then has been having neck pain. ? Check CT neck with contrast. ? Check bladder scan and straight cath. Full code DVT prophylaxis: Heparin SQ twice daily 10/17/[address] neck with contrast stop IV fluids check bladder scan urine output not recorded continue cefepime bid await urine culture transfer to [facility] 10/18/2024 Urine culture negative Denies nuchal rigidity neck stiffness. Low suspicion of meningitis however cannot be ruled out. Patient does have a fever from admission and had another low-grade fever yesterday. Neck pain is not improving. Check MRI C-spine, head Plan for lumbar puncture going forward. Hold DVT prophylaxis dose today. Patient agreeable for lumbar puncture if needed. Discussed with Dr. Barcenas who will review MRI images once they are available. Continue vancomycin, cefepime. CT soft tissue neck did show acute sphenoid sinusitis however her headache and neck pain are unexplained at this point. 10/19/2024 Head MRI negative for acute intracranial findings, mild small vessel changes with moderate parenchymal volume loss. Right mastoid effusion, mucosal thickening with partial opacification sphenoid sinus MRI cervical spine shows 1. Straightening of the normal cervical lordosis. Mild spondylitic changes. Slight anterolisthesis C4 on C5 and C5 on C6. 2. Prominent RIGHT facet synovitis with periarticular edema at C4-C5 and C5-C6 most likely inflammatory or degenerative. Recommend correlation with RIGHT neck pain. No drainable fluid collections. 3. Mild central canal stenosis C6-7 with RIGHT paracentral disc osteophyte protrusion and slight indentation on the cervical cord. 4. Severe RIGHT C3-C4 and C4-C5 bony foraminal narrowing. 5. Severe RIGHT greater than LEFT C5-C6 bony foraminal narrowing. Moderate RIGHT C6-7 bony foraminal narrowing. Consult Dr. Barcenas. Lumbar puncture ordered. Will check CSF studies. The reaction to vancomycin. Will switch to linezolid. Await results of lumbar puncture. MRI does show evidence of synovitis. Will start on dexamethasone 10 every 6 hours. PDMP PDMP Reviewed: Not Reviewed Attestations 2 Medical Necessity Statement*: Cervical synovitis, initially admitted with sepsis secondary to possible UTI versus unknown source, still has neck pain. She is awaiting a lumbar puncture. Diagnoses Urgency incontinence N39.41 Recurrent UTI N39.0 Sepsis A41.9 Sepsis acute organ dysfunction status: without acute organ dysfunction Neck pain M54.2 Synovitis M65.90
[2024-10-19] MEDS: linezolid premix 600 MG/300 ML PREMIX 300 MG IV (13:39)
[2024-10-19] MEDS: dexamethasone 10 mg/mL INJ IVP ×2 (14:33→20:46)
--- NOTE | 2024-10-19 16:00 | PM.CONSULT ---
Providers/Reason For Consult Consulting Physician/Specialty*: Hospitalist Reason for Consult*: Neck pain Attending Physician: Erika Mann MD Primary Care Provider: Troy Berrios DO History of Present Illness History of Present Illness Brenda Thomas is a 74 year old female was admitted to the hospital for overall general not feeling well as well as neck pain and headaches. Patient said that sometimes she will get some numbness down her arm but overall does not have pain shooting down her arm. At this point patient stated that she actually her neck feels pretty good is not having any pain. Review of Systems Const: Reports: fever(s), chills and body aches Card: Reports: chest pain Resp: Reports: dyspnea, productive cough and wheezing GI: Reports: abdominal pain, nausea and vomiting : Reports: difficulty voiding Musc: Reports: joint pain, joint swelling and limited range of motion Skin/Breast: Reports: changes in skin color and dry skin Neuro: Reports: numbness in extremities and weakness in extremities Psych: Reports: anxiety Joe/Lymph: Reports: easy bruising and easy bleeding Medications/Allergies Home Medications ?Medication ?Instructions ?Recorded ?Confirmed ?Last Taken ?Type atorvastatin 80 mg tablet 80 mg PO QPM 05/01/21 10/16/24 10/15/24 History 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, 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 #1 ea 11/20/23 10/16/24 Unknown Rx rotating shower chair #1 ea 11/20/23 10/16/24 Unknown Rx amoxicillin 500 mg capsule 500 mg PO BID 10/16/24 10/16/24 10/16/24 History famotidine 20 mg tablet 20 mg PO BID 10/16/24 10/16/24 10/16/24 History oxybutynin chloride 5 mg tablet 5 mg PO BID 10/16/24 10/16/24 10/16/24 History sertraline 50 mg tablet 50 mg PO DAILY 10/16/24 10/16/24 10/16/24 History valacyclovir 500 mg tablet 500 mg PO BID PRN viral 10/16/24 10/16/24 Unknown History Allergies Allergy/AdvReac Type Severity Reaction Status Date / Time No Known Allergies Allergy Verified 10/16/24 13:16 Current Medications Generic Name Dose Route Start Last Admin Trade Name Freq PRN Reason Stop Dose Admin Acetaminophen 650 mg 10/16/24 17:12 10/18/24 22:05 Acetaminophen 325 Mg Tablet PO 650 mg Q6H PRN Administration Mild/Mod Pain Or Temp >/= 101 Atorvastatin Calcium 80 mg 10/16/24 18:00 10/18/24 17:38 Atorvastatin 40 Mg Tablet PO 80 mg QPM MARLENA Administration Cefepime HCl 1,000 mg 10/17/24 05:30 10/19/24 05:19 Cefepime 1,000 Mg Sdv IVP 1,000 mg Q12H MARLENA Administration Protocol Dexamethasone 10 mg 10/19/24 14:15 10/19/24 14:33 Dexamethasone 10 Mg/Ml Inj IVP 10 mg Q6H MARLENA Administration Famotidine 20 mg 10/16/24 18:00 10/19/24 08:21 Famotidine 20 Mg Tablet PO 20 mg BID MARLENA Administration Heparin Sodium (Porcine) 5,000 unit 10/16/24 17:15 10/18/24 05:38 Heparin 5,000 Unit/Ml Inj 1 Ml SUBCUT 5,000 unit On Hold: 10/18/24 09:35 Q12H MARLENA Administration Sodium Chloride 1,000 mls @ 125 mls/hr 10/17/24 20:15 10/19/24 11:22 Sodium Chloride 0.9% IV 125 mls/hr .Q8H MARLENA Administration Linezolid 600 mg in 300 mls @ 300 mls/hr 10/19/24 13:30 10/19/24 15:00 Zyvox Premix IV Infused Q12H MARLENA Infusion Protocol Ondansetron HCl 4 mg 10/16/24 17:12 10/17/24 14:58 Ondansetron 2 Mg/Ml Sdv 2 Ml IVP 4 mg Q8H PRN Administration vomiting, or N/V if npo Oxybutynin Chloride 5 mg 10/16/24 18:00 10/19/24 08:21 Oxybutynin 5 Mg Tablet PO 5 mg BID MARLENA Administration Sertraline HCl 50 mg 10/17/24 09:00 10/19/24 08:21 Sertraline 50 Mg Tablet PO 50 mg DAILY MARLENA Administration Triamcinolone Acetonide 1 applic 10/18/24 23:00 10/19/24 12:45 Triamcinolone 0.5% Cream 15 Gm TOPICAL 10/23/24 22:59 1 applic BID MARLENA Administration PFSH Acute PFSH: Medical History Recurrent UTI No pertinent family history Hypertension Surgical History No pertinent past surgical history Family History Mother , at age 85 Cancer Bladder Father , at age 73 Abuse, drug or alcohol Social History Smoking and tobacco/nicotine status: never used tobacco/nicotine Alcohol intake: never Substance/Drug Use: unknown Lives independently: Yes Household members: spouse Marital status: Current occupational status: retired Vitals/I&O/Wt Last Vital Signs Temp 98.1 F 10/19/24 11:42 Pulse 62 10/19/24 14:00 Resp 18 10/19/24 11:42 BP 144/75 10/19/24 11:42 Pulse Ox 92 10/19/24 11:42 O2 Del Method Room Air 10/19/24 11:42 O2 Flow Rate 2 10/17/24 21:00 10/19/24 10/19/24 10/19/24 06:59 14:59 22:59 Intake Total 1250 / 2740 1600 / 1600 300 / 1900 Balance 1250 / 2740 1600 / 1600 300 / 1900 Weight last 48 hrs Weight 156 lb Weight 162 lb Physical Exam Narrative: Alert and oriented x 3 Head is normocephalic atraumatic Respirations are intact No evidence of any rashes or infection 5/5 strength in bilateral upper and lower extremities Sensation intact in all extremities Deep tendon reflexes 2 out of 4 bilateral upper and lower extremities Data 10/19/24 04:24 10/19/24 04:24 A&P Assessment and plan (1) Neck pain: Patient has cervical stenosis worse on the right side. She also has facet synovitis. At this point however pain is improved. Did discuss with hospitalist to potentially do steroids however with her symptoms improving I would hold off from this at this point. Discussed with her she can follow-up in the office if her symptoms return. PDMP PDMP Reviewed: Not Reviewed Consult Attestations Medical Necessity Statement: Per primary service Coding Level of Care Code Acute Code for Chg Fwd Diagnoses Neck pain M54.2
[2024-10-19] MEDS: atorvastatin 40 mg Tablet 80 MG PO (17:43)
[2024-10-19] MEDS: acetaminophen 325 mg Tablet 650 MG PO (21:59)
--- NOTE | 2024-10-20 | FL_ITS ---
WS: [id number] LUMBAR PUNCTURE CLINICAL INFORMATION: r/o meningitis, neck pain COMPARISON: None. TECHNIQUE: Informed consent: The procedure and its potential risk and complications were discussed with the patient. Verbal and written consent was obtained. Timeout: A timeout was performed to confirm correct patient, procedure, and site. Patient was prepped and draped in the usual sterile fashion. Lidocaine 1% was used for local anesthesia. Utilizing fluoroscopic guidance, a 3.5 inch 22-gauge spinal needle was advanced into the subarachnoid space at L2-3 via LEFT oblique sublaminar approach. Free flow of clear CSF was obtained. 12 cc of CSF was collected and sent the lab for further analysis. FLUOROSCOPIC TIME: 1min [id number] # of spot films: 2 FL/FL guided lumbarpunc dx* [id number] IMPRESSION: Fluoroscopically guided lumbar puncture. No immediate complications
[2024-10-20] MEDS: linezolid premix 600 MG/300 ML PREMIX 300 MG IV ×2 (01:41→12:52)
[2024-10-20] MEDS: dexamethasone 10 mg/mL INJ IVP ×3 (01:44→14:55)
[2024-10-20] MEDS: sodium chloride 0.9% 1,000 ML 125 ML IV ×2 (02:47→11:11)
[2024-10-20 04:00] VITALS: BP 151/74; PULSE 68; RESP 18; TEMP 36.4; O2SAT 93
[2024-10-20] MEDS: cefepime 1,000 mg SDV 1000 MG IVP (05:31)
[2024-10-20 06:04] LABS: Basophils % 0.1 %; Hematocrit 35.2 % (36-47); Lymphocytes # 1.6 10^3/uL (0.8-4.8); Lymphocytes % 12.3 %; Mean Corpuscular HGB Conc 34.4 g/dL (30-55); Mean Corpuscular Hemoglobin 33.2 pg (27-33); Mean Corpuscular Volume 96.7 fl (85-98); Mean Platelet Volume 10.9 fL (7.4-10.4); Monocytes # 0.2 10^3/uL (0.2-0.9); Monocytes % 1.7 %; Neutrophils # 10.74 10^3/uL (1.8-7.7); Neutrophils % 85.2 %; Nucleated Red Blood Cells % 0 %; Platelet Count 323 10^3/cmm (157-399); Red Blood Count 3.64 10^6/uL (3.85-5.65); Red Cell Distribution Width 12.2 % (12.1-15.1)
[2024-10-20 06:31] LABS: Alanine Aminotransferase 32 U/L (0-33); Albumin Level 3.4 g/dL (3.5-5.2); Alkaline Phosphatase 75 U/L (35-105); Anion Gap 17.7 (5-19); Aspartate Amino Transferase 30 U/L (0-32); Blood Urea Nitrogen 12 mg/dL (8-23); Calcium 8.7 mg/dL (8.5-10.5); Carbon Dioxide 19 mmol/L (22-29); Chloride 108 mmol/L (98-107); Creatinine Clr Calc Pharmacy 62.9213; Globulin 3.6 g/dL (1.3-4.6); Glucose 161 mg/dL (65-115); Osmolality Calculated 295 mOsm/kg (285-295); Potassium 3.7 mmol/L (3.5-5.1); Sodium 141 mmol/L (136-145); Total Bilirubin 0.3 mg/dL (0.15-1.2)
[2024-10-20 07:45] VITALS: BP 150/91; PULSE 62; RESP 14; TEMP 36.6; O2SAT 93
[2024-10-20 08:09] VITALS: PULSE 66; RESP 16; O2SAT 93
[2024-10-20] MEDS: sertraline 50 mg Tablet PO (09:15)
[2024-10-20] MEDS: oxybutynin 5 mg Tablet PO (09:15)
[2024-10-20] MEDS: famotidine 20 mg Tablet PO (09:15)
--- NOTE | 2024-10-20 09:34 | P.PN_ITS ---
Subjective 2 Subjective: neck pain improving steroids started yesterday plan for LP today pt feels better Vitals/I&O/Wt Last Vital Signs Temp 97.8 F 10/20/24 07:45 Pulse 66 10/20/24 08:09 Resp 16 10/20/24 08:09 BP 150/91 10/20/24 07:45 Pulse Ox 93 10/20/24 08:09 O2 Del Method Room Air 10/20/24 08:09 O2 Flow Rate 2 10/17/24 21:00 10/19/24 10/20/24 10/20/24 22:59 06:59 14:59 Intake Total 1091.667 / 2691.667 1300 / 3991.667 Balance 1091.667 / 2691.667 1300 / 3991.667 Weight last 48 hrs Weight 71.259 kg Weight 70.76 kg Physical Exam 2 Narrative: General: Alert oriented x3, patient seen laying in bed appearing comfortable, able to touch chin to chest, states has mild pain doing so. neck exam unchanged HEENT: Normocephalic, atraumatic, EOMI, breathing room air Cardio: Regular rate rhythm, normal S1-S2, Respiratory: Clear to auscultation bilaterally GI: Abdomen soft, nontender, nondistended, bowel sounds + Extremities: No edema bilateral lower extremities Data 10/20/24 05:22 10/20/24 05:22 A&P Assessment and plan (1) Urgency incontinence: (2) Recurrent UTI: (3) Sepsis: (4) Neck pain: (5) Synovitis: Plan #Sepsis secondary to UTI, criteria met by hypotension, fever, leukocytosis, #Urinary urgency #Reduced urination #Anxiety/depression #Hyperlipidemia #GERD #Neck pain, headache ? Continue home atorvastatin, famotidine, oxybutynin, sertraline. ? Placed on IV cefepime 1 g twice daily ? Previous blood culture positive for Klebsiella in the past pansensitive and resistant to ampicillin. ? Await urine culture, blood cultures ? Tylenol for fever ? Continue normal saline at 125 cc/h. So far patient responding well to fluid however if needed may add Levophed. ? Patient is s/p normal saline bolus. ? Lactic acid negative ? Heparin SQ twice daily for DVT prophylaxis ? Continue DuoNeb every 6 hours as needed - Patient does not have any nuchal rigidity or neck stiffness. I do not believe this is meningitis. She does have fever but is not altered. She had chiropractic manipulation done about a week ago and since then has been having neck pain. ? Check CT neck with contrast. ? Check bladder scan and straight cath. Full code DVT prophylaxis: Heparin SQ twice daily 10/17/[address] neck with contrast stop IV fluids check bladder scan urine output not recorded continue cefepime bid await urine culture transfer to [facility] 10/18/2024 Urine culture negative Denies nuchal rigidity neck stiffness. Low suspicion of meningitis however cannot be ruled out. Patient does have a fever from admission and had another low-grade fever yesterday. Neck pain is not improving. Check MRI C-spine, head Plan for lumbar puncture going forward. Hold DVT prophylaxis dose today. Patient agreeable for lumbar puncture if needed. Discussed with Dr. Barcenas who will review MRI images once they are available. Continue vancomycin, cefepime. CT soft tissue neck did show acute sphenoid sinusitis however her headache and neck pain are unexplained at this point. 10/19/2024 Head MRI negative for acute intracranial findings, mild small vessel changes with moderate parenchymal volume loss. Right mastoid effusion, mucosal thickening with partial opacification sphenoid sinus MRI cervical spine shows 1. Straightening of the normal cervical lordosis. Mild spondylitic changes. Slight anterolisthesis C4 on C5 and C5 on C6. 2. Prominent RIGHT facet synovitis with periarticular edema at C4-C5 and C5-C6 most likely inflammatory or degenerative. Recommend correlation with RIGHT neck pain. No drainable fluid collections. 3. Mild central canal stenosis C6-7 with RIGHT paracentral disc osteophyte protrusion and slight indentation on the cervical cord. 4. Severe RIGHT C3-C4 and C4-C5 bony foraminal narrowing. 5. Severe RIGHT greater than LEFT C5-C6 bony foraminal narrowing. Moderate RIGHT C6-7 bony foraminal narrowing. Consult Dr. Barcenas. Lumbar puncture ordered. Will check CSF studies. The reaction to vancomycin. Will switch to linezolid. Await results of lumbar puncture. MRI does show evidence of synovitis. Will start on dexamethasone 10 every 6 hours. 10/20/2024 continue dexamethasone 10 q6h plan for LP today if LP negative, plan for dc home on oral abx, continue linezolid and cefepime will need spine surgery, ent, pcp follow up at dc, pt agreeable BP slightly elevated, most likely 2/2 to steroids PDMP PDMP Reviewed: Not Reviewed Attestations 2 Medical Necessity Statement*: plan for Lp today Diagnoses Urgency incontinence N39.41 Recurrent UTI N39.0 Sepsis A41.9 Sepsis acute organ dysfunction status: without acute organ dysfunction Neck pain M54.2 Synovitis M65.90
[2024-10-20 11:40] VITALS: BP 159/82; PULSE 74; RESP 16; TEMP 36.7; O2SAT 94
[2024-10-20] MEDS: acetaminophen 325 mg Tablet 650 MG PO (12:51)
[2024-10-20 13:04] LABS: Cyto Order Verification No Order
[2024-10-20 13:20] LABS: CSF Mononuclear # 0.002 10^3/uL (50-90); Mononuclear WBC CSF % 100 % (50-90); Polynuclear WBC CSF % 0 % (0-10); Red Blood Cell CSF 0 10^3/uL (0-0); White Blood Cell CSF 2 /uL (0-5)
[2024-10-20 13:21] LABS: Appearance CSF CLEAR (CLEAR); Color CSF COLORLESS (COLORLESS); Pathology Referral Yes
[2024-10-20 13:33] LABS: Glucose CSF 87 mg/dL (40-70); Total Protein CSF 26 mg/dL (15-45)
[2024-10-20 13:55] LABS: CSF Specific Gravity 1.007
--- NOTE | 2024-10-20 14:50 | PM.DCS ---
Discharge Providers Date of Admission: 10/16/24 15:45 Date of Discharge: October 20, 2024 Attending Provider at Admission: Erika Mann MD Attending Provider at Discharge: Erika Mann MD Primary Care Provider: Troy Berrios DO Diagnoses at Discharge Discharge Diagnosis (1) Urgency incontinence: Status: Acute (2) Recurrent UTI: Status: Acute (3) Sepsis: Status: Resolved Qualifiers: Sepsis acute organ dysfunction status: without acute organ dysfunction (4) Neck pain: Status: Acute (5) Synovitis: Status: Acute Reason for Visit Reason for Visit: neck and head pain Hospital Course Hospital Course Patient was initially admitted on 10/16 for fever and met criteria for sepsis secondary to UTI however also had neck pain. Low suspicion of meningitis however neck pain and headache persisted despite patient being afebrile. She recently had manipulation by chiropractor. Quite extensive workup was done. Urine culture was negative. Denied nuchal rigidity or neck stiffness. MRI C-spine was also obtained indicating possible synovitis. Patient was given IV dexamethasone for 2 doses. She was also seen by spine surgery with no further workup indicated. She was asked to follow-up in clinic with Dr. Barcenas. During hospitalization she was kept on vancomycin and cefepime. Lumbar puncture was performed which was also negative. Patient asymptomatic at this point and will be discharged home in stable condition. She was asked to follow-up with ENT, orthopedic surgery as outpatient and asked to return to the hospital if has a fever again. Patient will follow-up with PCP. Patient was discharged on antibiotics to complete course. Physical Exam Narrative: General: Alert oriented x3, patient seen laying in bed appearing comfortable, able to touch chin to chest, states has mild pain doing so. neck exam unchanged HEENT: Normocephalic, atraumatic, EOMI, breathing room air Cardio: Regular rate rhythm, normal S1-S2, Respiratory: Clear to auscultation bilaterally GI: Abdomen soft, nontender, nondistended, bowel sounds + Extremities: No edema bilateral lower extremities Discharge Data Studies Completed and Pending Completed Studies During Hospitalization Category Date Time Status CT neck w con* [id number] Stat Cat Scan 10/17/24 13:12 Completed XR cervical spine 3V* [id number] Stat Exams 10/16/24 14:14 Completed XR chest 1V portable [id number] Stat Exams 10/16/24 14:14 Completed MR cervical spin wo con* [id number] Stat MRI 10/18/24 08:29 Completed MR head wo con* [id number] Stat MRI 10/18/24 09:35 Completed Pending at discharge Category Date Time Status FL guided lumbarpunc dx* [id number] Urgent Exams 10/20/24 Taken Basic Metabolic Panel AM LABS Lab 10/21/24 04:00 Ordered Blood Culture Stat Lab 10/16/24 13:35 Results CSF Culture & Gram Stain Stat Lab 10/20/24 12:30 Results Complete Blood Count w/Auto AM LABS Lab 10/21/24 04:00 Ordered Cryptococcal Antigen (CSF) Stat Lab 10/20/24 12:30 Results IGG CSF [Immunoglobulin G, CSF] Routine Lab 10/18/24 17:04 Received VDRL on CSF Stat Lab 10/20/24 12:30 Received Radiology Impressions Cervical Spine X-Ray 10/16/24 14:14 IMPRESSION: No acute posttraumatic changes in the cervical spine. Chest X-Ray 10/16/24 14:14 IMPRESSION: No acute cardiopulmonary process. Neck CT 10/17/24 13:12 IMPRESSION: 1. No neck mass or adenopathy. 2. Acute sphenoid sinusitis. 3. Bilateral facet joint arthropathy with multiple levels of foraminal stenosis. Cervical Spine MRI 10/18/24 08:29 IMPRESSION: 1. Straightening of the normal cervical lordosis. Mild spondylitic changes. Slight anterolisthesis C4 on C5 and C5 on C6. 2. Prominent RIGHT facet synovitis with periarticular edema at C4-C5 and C5-C6 most likely inflammatory or degenerative. Recommend correlation with RIGHT neck pain. No drainable fluid collections. 3. Mild central canal stenosis C6-7 with RIGHT paracentral disc osteophyte protrusion and slight indentation on the cervical cord. 4. Severe RIGHT C3-C4 and C4-C5 bony foraminal narrowing. 5. Severe RIGHT greater than LEFT C5-C6 bony foraminal narrowing. Moderate RIGHT C6-7 bony foraminal narrowing. Head MRI 10/18/24 09:35 IMPRESSION: 1. No acute intracranial findings. 2. Mild small vessel changes with moderate parenchymal volume loss. 3. RIGHT mastoid effusion. 4. Mucosal thickening with partial opacification sphenoid sinus Laboratory Results WBC 12.60 10^3/uL (3.29-11.43) H 10/20/24 05:22 RBC 3.64 10^6/uL (3.85-5.65) L 10/20/24 05:22 Hgb 12.10 g/dL (11.27-16.99) 10/20/24 05:22 Hct 35.2 % (36-47) L 10/20/24 05:22 MCV 96.7 fl (85-98) 10/20/24 05:22 MCH 33.2 pg (27-33) H 10/20/24 05:22 MCHC 34.4 g/dL (30-55) 10/20/24 05:22 RDW 12.2 % (12.1-15.1) 10/20/24 05:22 Plt Count 323 10^3/cmm (157-399) 10/20/24 05:22 MPV 10.9 fL (7.4-10.4) H 10/20/24 05:22 Neut % (Auto) 85.2 % 10/20/24 05:22 Lymph % (Auto) 12.3 % 10/20/24 05:22 Bulloch % (Auto) 1.7 % 10/20/24 05:22 Eos % (Auto) 0.0 % 10/20/24 05:22 Baso % (Auto) 0.1 % 10/20/24 05:22 Neut # (Auto) 10.74 10^3/uL (1.8-7.7) H 10/20/24 05:22 Lymph # (Auto) 1.6 10^3/uL (0.8-4.8) 10/20/24 05:22 Bulloch # (Auto) 0.2 10^3/uL (0.2-0.9) 10/20/24 05:22 Eos # (Auto) 0.0 10^3/uL (0.0-0.8) 10/20/24 05:22 Baso # (Auto) 0.0 10^3/uL (0.0-0.1) 10/20/24 05:22 Nucleated RBC % (auto) 0 % 10/20/24 05:22 Nucleated RBCs # 0.0 /100WBC 10/20/24 05:22 Sodium 141 mmol/L (136-145) 10/20/24 05:22 Potassium 3.7 mmol/L (3.5-5.1) 10/20/24 05:22 Chloride 108 mmol/L (98-107) H 10/20/24 05:22 Carbon Dioxide 19 mmol/L (22-29) L 10/20/24 05:22 Anion Gap 17.7 (5-19) 10/20/24 05:22 BUN 12 mg/dL (8-23) 10/20/24 05:22 Creatinine 0.5 mg/dL (0.5-0.9) 10/20/24 05:22 GFR Calculation Not Reportable 10/20/24 05:22 Glucose 161 mg/dL (65-115) H 10/20/24 05:22 Calculated Osmolality 295 mOsm/kg (285-295) 10/20/24 05:22 Lactic Acid 0.6 mmol/L (0.5-2.2) 10/16/24 18:10 Calcium 8.7 mg/dL (8.5-10.5) 10/20/24 05:22 Magnesium 1.8 mg/dL (1.7-2.3) 10/19/24 04:24 Total Bilirubin 0.3 mg/dL (0.15-1.2) 10/20/24 05:22 AST 30 U/L (0-32) 10/20/24 05:22 ALT 32 U/L (0-33) 10/20/24 05:22 Alkaline Phosphatase 75 U/L (35-105) 10/20/24 05:22 C-Reactive Protein 114.8 mg/L (0.0-4.9) H 10/16/24 13:35 Total Protein 7.0 g/dL (6.6-8.7) 10/20/24 05:22 Albumin 3.4 g/dL (3.5-5.2) L 10/20/24 05:22 Globulin 3.6 g/dL (1.3-4.6) 10/20/24 05:22 Lipase 19 U/L (13-60) 10/16/24 13:35 Procalcitonin 0.17 ng/mL (0-0.5) 10/16/24 13:35 Urine Color Yellow (Yellow) 10/16/24 14:40 Urine Appearance Clear (CLEAR) 10/16/24 14:40 Urine pH 6.0 (5-7) 10/16/24 14:40 Ur Specific Hamilton 1.016 (1.005-1.030) 10/16/24 14:40 Urine Protein 1+ (Negative) A 10/16/24 14:40 Urine Glucose (UA) Negative (Normal) 10/16/24 14:40 Urine Ketones Negative (Negative) 10/16/24 14:40 Urine Blood Trace (Negative) A 10/16/24 14:40 Urine Nitrate Negative (Negative) 10/16/24 14:40 Urine Bilirubin Negative (Negative) 10/16/24 14:40 Urine Urobilinogen 1.0 mg/dL (Negative) 10/16/24 14:40 Ur Leukocyte Esterase 2+ (Negative) A 10/16/24 14:40 Urine RBC 0-2 /hpf (0-2) 10/16/24 14:40 Urine WBC 21-50 /hpf (0-5) H 10/16/24 14:40 Ur Squamous Epith Cells 6-10 /hpf (0-5) 10/16/24 14:40 Amorphous Sediment Not Reportable 10/16/24 14:40 Urine Bacteria None seen /hpf (NONE) 10/16/24 14:40 Hyaline Casts 0.81 /lpf 10/16/24 14:40 CSF Appearance Clear (CLEAR) 10/20/24 12:30 CSF Color Colorless (COLORLESS) 10/20/24 12:30 CSF Specific Hamilton 1.007 10/20/24 12:30 CSF WBC 2 /uL (0-5) 10/20/24 12:30 CSF RBC 0 10^3/uL (0-0) 10/20/24 12:30 CSF Mononuclear # Auto 0.002 10^3/uL (50-90) L 10/20/24 12:30 CSF Mononuclear WBCs % 100 % (50-90) H 10/20/24 12:30 CSF Polynuclear WBCs # 0.000 10^3/uL (0-10) 10/20/24 12:30 CSF Polynuclear WBCs % 0 % (0-10) 10/20/24 12:30 CSF Diff Comment Yes 10/20/24 12:30 CSF Glucose 87 mg/dL (40-70) H 10/20/24 12:30 CSF Total Protein 26 mg/dL (15-45) 10/20/24 12:30 Adenovirus (PCR) Not detected (NOT DETECT) 10/18/24 11:41 C. pneumoniae DNA (PCR) Not detected (NOT DETECT) 10/18/24 11:41 Coronavirus 229E (PCR) Not detected (NOT DETECT) 10/18/24 11:41 Human Metapneumovir PCR Not detected (NOT DETECT) 10/18/24 11:41 Influenza A (H1) PCR Not detected (NOT DETECT) 10/18/24 11:41 Influenza A (PCR) Negative (Negative) 10/16/24 13:55 Influ A (H1/09) PCR Not detected (NOT DETECT) 10/18/24 11:41 Influenza A (H3) PCR Not detected (NOT DETECT) 10/18/24 11:41 Influenza Type A (PCR) Not detected (NOT DETECT) 10/18/24 11:41 Influenza Type B (PCR) Not detected (NOT DETECT) 10/18/24 11:41 M. pneumoniae (PCR) Not detected (NOT DETECT) 10/18/24 11:41 Parainfluenza 1 (PCR) Not detected (NOT DETECT) 10/18/24 11:41 Parainfluenza 2 (PCR) Not detected (NOT DETECT) 10/18/24 11:41 Parainfluenza 3 (PCR) Not detected (NOT DETECT) 10/18/24 11:41 Parainfluenza 4 (PCR) Not detected (NOT DETECT) 10/18/24 11:41 RSV (PCR) Negative (Negative) 10/16/24 13:55 RSV Type A (PCR) Not detected (NOT DETECT) 10/18/24 11:41 RSV Type B (PCR) Not detected (NOT DETECT) 10/18/24 11:41 Entero/Rhino (PCR) Not detected (NOT DETECT) 10/18/24 11:41 SARS-CoV-2 (PCR) Not detected (NOT DETECT) 10/18/24 11:41 Vitals Last Vital Signs Temp 98.0 F 10/20/24 11:40 Pulse 74 10/20/24 11:40 Resp 16 10/20/24 11:40 BP 159/82 10/20/24 11:40 Pulse Ox 94 10/20/24 11:40 O2 Del Method Room Air 10/20/24 11:40 O2 Flow Rate 2 10/17/24 21:00 Discharge Plan Discharge Patient Disposition: Home Condition: Stable Prescriptions: Continued (DME) lateral land surveyor brace, left See Rx Instructions .Route .MEDSUPPLY Qty: 1 0RF Rx Instructions: As directed, please give instructions on using a crutch/walker with toe touch weight bearing. (DME) rotating shower chair See Rx Instructions .Route .MEDSUPPLY Qty: 1 0RF Rx Instructions: As directed atorvastatin 80 mg tablet 80 mg PO QPM valacyclovir 500 mg tablet 500 mg PO BID PRN (Reason: viral) famotidine 20 mg tablet 20 mg PO BID oxybutynin chloride 5 mg tablet 5 mg PO BID sertraline 50 mg tablet 50 mg PO DAILY Discontinued amoxicillin 500 mg Capsule 500 mg PO BID Discharge Orders: Discharge Order (Routine); Ordered 10/20/24 Ordered By: Erika Mann Referrals: Angel Barcenas DO [Physician, Orthopedics] - 11/03/24 1:45 pm Referral Note: Dionte Mcqueen MD [Physician, Ear, Nose, Throat] - 10/27/24 3:20 pm Troy Berrios DO [Primary Care Provider, Family Practice] - 1-3 days Referral Note: We have notified your physician's clinic of the need for a follow-up appointment to be scheduled. If you have not heard from them within the next 2 business days, please call them directly. Discharge Diet: Regular Discharge Activity: Resume usual activity Patient Instructions: Cefdinir (By mouth), Linezolid (By mouth), Headache, Opioid Safety Discharge Attestations Time Spent in Discharge Care*: greater than 30 min Status at Discharge: Cognitive status at discharge: cognitively intact, Behavioral status at discharge: cooperative, Quality Metrics Clinical Quality Measures [ No reported AMI, CVA or VTE this stay] Coding Level of Care Code Acute Code for Chg Fwd Diagnoses Urgency incontinence N39.41 Recurrent UTI N39.0 Sepsis A41.9 Sepsis acute organ dysfunction status: without acute organ dysfunction Neck pain M54.2 Synovitis M65.90
[2024-10-20 16:00] VITALS: BP 149/77; PULSE 69; RESP 14; TEMP 36.8; O2SAT 95
[2024-10-20 16:45] VITALS: BP 149/77; PULSE 69; RESP 16; TEMP 36.8; O2SAT 95
[2024-10-25 14:54] LABS: Immunoglobulin G, CSF 1.7 mg/dL (0.8-7.7)
[2024-10-26 00:10] LABS: VDRL on CSF NON-REACTIVE
== END 2024-10-20 16:46 | disposition home or self-care (01) | DRG 872 ==
LOC: ER 15:25 → ER IP 15:52 → ICU 22:55 → MEDSURG 10-18 06:35
PROVIDERS: Admitting Provider Internal Medicine; Emergency Provider Emergency Medicine; PCP Electrodiagnostic Medicine; Visit Provider Internal Medicine
DX: A41.9 Sepsis, unspecified organism (principal); N39.0 Urinary tract infection, site not specified; R32 Unspecified urinary incontinence; M65.98 Unspecified synovitis and tenosynovitis, other site; M48.02 Spinal stenosis, cervical region; M54.2 Cervicalgia; I10 Essential (primary) hypertension; F41.9 Anxiety disorder, unspecified; F32.A Depression, unspecified; K21.9 Gastro-esophageal reflux disease without esophagitis; E78.5 Hyperlipidemia, unspecified; L27.1 Localized skin eruption due to drugs and medicaments taken internally; T36.8X5A Adverse effect of other systemic antibiotics, initial encounter; Z87.440 Personal history of urinary (tract) infections
CPT/HCPCS: 36415; 51701; 51798; 62328; 70491; 70551; 71045; 72040; 72141; 80048; 80053; 80503; 81001; 82784; 82945; 83605; 83690; 83735; 84145; 84157; 84315; 85025; 86140; 86592; 87040; 87070; 87075; 87086; 87205; 87327; 87486; 87581; 87633; 87637; 89050; 93005; 96361; 96372; 96374; 96376; 99285; J0692; J1100; J1644; J2020; J2405; J3370; J7030; J7050; J7512; J9999